=== PATIENT | male | born 2000 | race African-American/Black ===

== ENCOUNTER 2024-09-26 04:36 | Emergency (ER) | payer OTHER, SELFPAY ==
--- OUTSIDE RECORDS SUMMARY | 2000-10-18 | XMS_ITS | Encounter Summary ---
Author Organization [facility] Address [address] [place] [address] Care Team Providers Care Junior Project Coordinator Name Role Phone Unavailable Primary Care Provider Unavailabl e Encounter Details Date Type Department Care Team (Late st Contact Info) Description [address] Encounter [facility] Department of Radiology [address] [place] [phone] Social History Tobacco Use Types Packs/Day Years Used Date Smoking Tobacco: Never Smokeless Tobacco: Never Alcohol Use Standard Drinks/Week Comments No 0 (1 standard drink = 0.6 oz pur e alcohol) Intimate Partner Violence Answer Date R ecorded If you are in a relationship , do you feel safe in that relationship? Yes 09/08/2017 Safe in relationship? (18 and older) Not on file 09/08/2017 Financial Resource Strain Answer Date R ecorded Financial benefits problems Not on file 11/2022 Trouble paying for things you need Not on file 08/23/2022 Trouble paying for things you need (Other) Not o n file 08/23/2022 Safety and Environment Answer Date Alexey rded Do you have any concerns of physical abuse, sexual abuse, or neglect of your child? No 09/08/2017 Is an adult hurting you or your family? No 09/08/2017 Has someone ever touched you in a sexual way that was not ok with you? No 09/08/2017 Someone hurting you or family (18 and older) Not on file 09/08/2017 Historical abuse worry Not on file 8 If you have firearms in the home, are they all in locked storage AND unloaded? Not on file 09/08/2017 Sex and Gender Information Value Date Recorded Sex Assigned at Not on file Legal Sex Male 5:12 AM EST Gender Identity Not on file Sexual Orientation Not on file documented as of this encounter Plan of Treatment Not on file documented as of this encounter Visit Diagnoses Not on filedocumented in this encounter
--- OUTSIDE RECORDS SUMMARY | 2000-12-22 | XMS_ITS | Encounter Summary ---
Author Organization [facility] Address [address] [place] [address] Care Team Providers Care Last Puller Name Role Phone Unavailable Primary Care Provider Unavailabl e Encounter Details Date Type Department Care Team (Late st Contact Info) Description 2000 Hospital Encounter [facility] Division of Neurology [address] [place] [address] Social History Tobacco Use Types Packs/Day Years [...]
--- OUTSIDE RECORDS SUMMARY | 2001-05-25 01:00 | XMS_ITS | Encounter Summary ---
Author Organization [facility] Address [address] [place] [address] Care Team Providers Care Quality Assurance Assistant Name Role Phone Unavailable Primary Care Provider Unavailabl e Encounter Details Date Type Department Care Team (Late st Contact Info) Description 05/25/2001 Hospital Encounter [facility] Division of Neurology [address] [place] [address] Social History Tobacco Use Types [...]
--- OUTSIDE RECORDS SUMMARY | 2002-01-11 | XMS_ITS | Encounter Summary ---
Author Organization [facility] Address [address] [place] [address] Care Team Providers Care Medical Records Director Name Role Phone Unavailable Primary Care Provider Unavailabl e Encounter Details Date Type Department Care Team (Late st Contact Info) Description 01/11/2002 Hospital Encounter [facility] Division of Neurology [address] [place] [address] Social History Tobacco Use Types [...]
--- OUTSIDE RECORDS SUMMARY | 2002-06-28 01:00 | XMS_ITS | Encounter Summary ---
Author Organization [facility] Address [address] [place] [address] Care Team Providers Care Fig Bar Machine Operator Name Role Phone Unavailable Primary Care Provider Unavailabl e Encounter Details Date Type Department Care Team (Late st Contact Info) Description 06/28/2002 Hospital Encounter [facility] Department of Radiology [address] [place] [phone] Social History Tobacco Use Types Packs/Day [...]
--- OUTSIDE RECORDS SUMMARY | 2002-07-12 01:00 | XMS_ITS | Encounter Summary ---
Author Organization [facility] Address [address] [place] [address] Care Team Providers Care Parcel Post Order Clerk Name Role Phone Unavailable Primary Care Provider Unavailabl e Encounter Details Date Type Department Care Team (Late st Contact Info) Description 07/12/2002 Hospital Encounter [facility] Division of Neurology [address] [place] [address] Social History Tobacco Use Types [...]
--- OUTSIDE RECORDS SUMMARY | 2003-02-21 01:00 | XMS_ITS | Encounter Summary ---
Author Organization [facility] Address [address] [place] [address] Care Team Providers Care Supervisor Bakery Sanitation Name Role Phone Unavailable Primary Care Provider Unavailabl e Encounter Details Date Type Department Care Team (Late st Contact Info) Description 02/21/2003 Hospital Encounter [facility] Division of Neurology [address] [place] [address] Social History Tobacco Use Types Packs/Day Years [...]
--- OUTSIDE RECORDS SUMMARY | 2003-04-23 01:00 | XMS_ITS | Encounter Summary ---
Author Organization [facility] Address [address] [place] [address] Care Team Providers Care Keno Terminal Operator Name Role Phone Unavailable Primary Care Provider Unavailabl e Encounter Details Date Type Department Care Team (Late st Contact Info) Description 04/23/2003 Hospital Encounter [facility] Division of Neurology [address] [place] [address] Social History Tobacco Use Types [...]
--- OUTSIDE RECORDS SUMMARY | 2003-06-27 01:00 | XMS_ITS | Encounter Summary ---
Author Organization [facility] Address [address] [place] [address] Care Team Providers Care Rehab Office Coordinator Name Role Phone Unavailable Primary Care Provider Unavailabl e Encounter Details Date Type Department Care Team (Late st Contact Info) Description 06/27/2003 Hospital Encounter [facility] Division of Neurology [address] [place] [address] Social History Tobacco Use Types [...]
--- OUTSIDE RECORDS SUMMARY | 2003-08-01 | XMS_ITS | Encounter Summary ---
Author Organization [facility] Address [address] [place] [address] Care Team Providers Care Card Game Operator Name Role Phone Unavailable Primary Care Provider Unavailabl e Encounter Details Date Type Department Care Team (Late st Contact Info) Description 08/01/2003 Hospital Encounter [facility] Division of Neurology [address] [place] [address] Social History Tobacco Use Types [...]
--- OUTSIDE RECORDS SUMMARY | 2003-10-03 | XMS_ITS | Encounter Summary ---
Author Organization [facility] Address [address] [place] [address] Care Team Providers Care Survey Operations Director Name Role Phone Unavailable Primary Care Provider Unavailabl e Encounter Details Date Type Department Care Team (Late st Contact Info) Description 10/03/[address] [facility] Division of Neurology [address] [place] [address] Social History Tobacco Use Types [...]
--- OUTSIDE RECORDS SUMMARY | 2003-12-26 | XMS_ITS | Encounter Summary ---
Author Organization [facility] Address [address] [place] [address] Care Team Providers Care Client Resolution Specialist Name Role Phone Unavailable Primary Care Provider Unavailabl e Encounter Details Date Type Department Care Team (Late st Contact Info) Description 12/26/2003 Hospital Encounter [facility] Division of Neurology [address] [place] [address] Social History Tobacco Use Types [...]
--- OUTSIDE RECORDS SUMMARY | 2004-03-05 01:00 | XMS_ITS | Encounter Summary ---
Author Organization [facility] Address [address] [place] [address] Care Team Providers Care Medicine Assistant Name Role Phone Unavailable Primary Care Provider Unavailabl e Encounter Details Date Type Department Care Team (Late st Contact Info) Description 03/05/2004 Hospital Encounter [facility] Division of Neurology [address] [place] [address] Social History Tobacco Use Types [...]
--- OUTSIDE RECORDS SUMMARY | 2004-06-16 01:00 | XMS_ITS | Encounter Summary ---
Author Organization [facility] Address [address] [place] [address] Care Team Providers Care Commissary Worker Name Role Phone Unavailable Primary Care Provider Unavailabl e Encounter Details Date Type Department Care Team (Late st Contact Info) Description 06/16/2004 Hospital Encounter [facility] Division of Neurology [address] [place] [address] Social History Tobacco Use Types [...]
--- OUTSIDE RECORDS SUMMARY | 2005-02-16 01:00 | XMS_ITS | Encounter Summary ---
Author Organization [facility] Address [address] [place] [address] Care Team Providers Care Manager Business Continuity Name Role Phone Unavailable Primary Care Provider Unavailabl e Encounter Details Date Type Department Care Team (Late st Contact Info) Description 02/16/2005 Hospital Encounter [facility] Division of Neurology [address] [place] [address] Social History Tobacco Use Types [...]
--- OUTSIDE RECORDS SUMMARY | 2005-05-11 01:00 | XMS_ITS | Encounter Summary ---
Author Organization [facility] Address [address] [place] [address] Care Team Providers Care Dining Room Manager Name Role Phone Unavailable Primary Care Provider Unavailabl e Encounter Details Date Type Department Care Team (Late st Contact Info) Description 05/11/2005 Hospital Encounter [facility] Division of Neurology [address] [place] [address] Social History Tobacco Use Types [...]
--- OUTSIDE RECORDS SUMMARY | 2005-07-01 01:00 | XMS_ITS | Encounter Summary ---
Author Organization [facility] Address [address] [place] [address] Care Team Providers Care International Sourcing Manager Name Role Phone Unavailable Primary Care Provider Unavailabl e Encounter Details Date Type Department Care Team (Late st Contact Info) Description 07/01/2005 Hospital Encounter [facility] Division of Neurology [address] [place] [address] Social History Tobacco Use Types [...]
--- OUTSIDE RECORDS SUMMARY | 2005-10-21 | XMS_ITS | Encounter Summary ---
Author Organization [facility] Address [address] [place] [address] Care Team Providers Care Hospital Education Coordinator Name Role Phone Unavailable Primary Care Provider Unavailabl e Encounter Details Date Type Department Care Team (Late st Contact Info) Description 10/21/2005 Hospital Encounter [facility] Division of Neurology [address] [place] [address] Social History Tobacco Use Types [...]
--- OUTSIDE RECORDS SUMMARY | 2005-12-09 | XMS_ITS | Encounter Summary ---
Author Organization [facility] Address [address] [place] [address] Care Team Providers Care Citrus Fruit Colorer Name Role Phone Unavailable Primary Care Provider Unavailabl e Encounter Details Date Type Department Care Team (Late st Contact Info) Description 12/09/2005 Hospital Encounter [facility] Division of Neurology [address] [place] [address] Social History Tobacco Use Types [...]
--- OUTSIDE RECORDS SUMMARY | 2006-01-20 | XMS_ITS | Encounter Summary ---
Author Organization [facility] Address [address] [place] [address] Care Team Providers Care Supervisor Building Maintenance Name Role Phone Unavailable Primary Care Provider Unavailabl e Encounter Details Date Type Department Care Team (Late st Contact Info) Description 01/20/2006 Hospital Encounter [facility] Division of Neurology [address] [place] [address] Social History Tobacco Use Types [...]
--- OUTSIDE RECORDS SUMMARY | 2006-04-21 01:00 | XMS_ITS | Encounter Summary ---
Author Organization [facility] Address [address] [place] [address] Care Team Providers Care Special Delivery Mail Carrier Name Role Phone Unavailable Primary Care Provider Unavailabl e Encounter Details Date Type Department Care Team (Late st Contact Info) Description 04/21/2006 Hospital Encounter [facility] Division of Neurology [address] [place] [address] Social History Tobacco Use Types [...]
--- OUTSIDE RECORDS SUMMARY | 2006-07-21 | XMS_ITS | Encounter Summary ---
Author Organization [facility] Address [address] [place] [address] Care Team Providers Care Manager Financial Name Role Phone Unavailable Primary Care Provider Unavailabl e Encounter Details Date Type Department Care Team (Late st Contact Info) Description 07/21/2006 Hospital Encounter [facility] Division of Neurology [address] [place] [address] Social History Tobacco Use Types [...]
--- OUTSIDE RECORDS SUMMARY | 2006-10-24 | XMS_ITS | Encounter Summary ---
Author Organization [facility] Address [address] [place] [address] Care Team Providers Care Stone Decorator Name Role Phone Unavailable Primary Care Provider Unavailabl e Encounter Details Date Type Department Care Team (Late st Contact Info) Description 10/24/2006 Hospital Encounter [place] [id number] [place] Division of Developmental & Behavioral Pediatrics [address] [place] [phone] Social History Tobacco Use Types Packs/Day [...]
--- OUTSIDE RECORDS SUMMARY | 2006-11-24 | XMS_ITS | Encounter Summary ---
Author Organization [facility] Address [address] [place] [address] Care Team Providers Care Frame Polisher Name Role Phone Unavailable Primary Care Provider Unavailabl e Encounter Details Date Type Department Care Team (Late st Contact Info) Description 11/24/2006 Hospital Encounter [facility] Division of Neurology [address] [place] [address] Social History Tobacco Use Types [...] on file documented as of this encounter Miscellaneous Notes * Consent Other - Edt, Audit [place] - 10/31/2007 11:57 AM EDT documented in this encounter Plan of Treatment Not on file documented as of this encounter Visit Diagnoses Not on filedocumented in this encounter
--- OUTSIDE RECORDS SUMMARY | 2006-12-27 | XMS_ITS | Encounter Summary ---
Author Organization [facility] Address [address] [place] [address] Care Team Providers Care Director Of User Experience Name Role Phone Unavailable Primary Care Provider Unavailabl e Encounter Details Date Type Department Care Team (Late st Contact Info) Description 12/27/2006 Hospital Encounter [facility] Department of Radiology [address] [place] [phone] Social History Tobacco Use Types Packs/Day [...] as of this encounter Miscellaneous Notes * Orders - Edt, Audit [place] - 02/27/2011 5:11 AM EST * Consent Other - Edt, Audit [place] - 10/31/2007 3:07 PM EDT documented in this encounter Plan of Treatment Not on file documented as of this encounter Procedures Procedure Name Priority Date/Time Associated Diagnosis Comments MRI BRAIN W/O CONTRAST Routine 12/27/2006 11:57 AM EDT documented in this encounter Results * MRI BRAIN W/O CONTRAST (12/27/2006 11:57 AM EDT) Anatomical Region Laterality Modality MRI NEURO Magnetic Resonan ce 12/27/2006 11:3 0 AM EDT Narrative 12/27/2006 11:57 AM EDT Final Report MRI brain. Indication: Structural abnormality. Technical: Multiplanar multisequence MRI of the brain performed without contrast. No sedation was utilized. Findings: When compared to prior MRI brain performed June 28, 2002, the previously identified prominent extra-axial fluid collections have resolved. The tsai-white differentiation is maintained and there is no intracranial mass or hemorrhage. No tsai matter heterotopia is identified. The temporal lobes are symmetric in size and appearance and are free of abnormal signal foci. A cavum septum pellucidum and cavum septum vergae are again noted. Otherwise the ventricles maintain a midline position and demonstrate normal contours. The basilar cisterns remain patent. The vascular flow-voids at the skull base as well to the major dural sinuses are unremarkable. No foci of the diffusion restriction is identified to suggest acute ischemia. The mastoid air cells and orbits are unremarkable. Mild mucosal thickening is noted within the sphenoid sinuses, right greater than left. Impression: 1. Interval resolution of prominent extra-axial CSF spaces. 2. Mild sphenoid sinus disease. 3. Otherwise unremarkable MR brain. Interpreted By: PAULINO MANLEY M.D. Verified By: MICHAEL HALL M.D. on 12/27/2006 15:33 via Electronic Signature The attending radiologist has reviewed the images and agrees with this report. us Danyel Esteves M.D. MR ORDERABLES Final Resu lt documented in this encounter Visit Diagnoses Not on filedocumented in this encounter
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
[2024-09-26 04:29] VITALS: BP 156/96; PULSE 60; RESP 16; TEMP 36.6; O2SAT 100; BMI 21.1
[2024-09-26 04:47] VITALS: BP 156/96; PULSE 60; RESP 16; TEMP 36.6; O2SAT 100
[2024-09-26 04:48] VITALS: BP 156/96; PULSE 60; RESP 16; TEMP 36.6; O2SAT 97
--- OUTSIDE RECORDS SUMMARY | 2024-09-26 05:07 | XMS_ITS | Encounter Summary ---
Author Organization [facility] Address [address] [place] [address] Care Team Providers Care Tankerman Name Role Phone Bulmaro Brunner M.D. Primary Care Provider Encounter Details Date Type Department Care Team (Late st Contact Info) Description 07/01/2014 Clinical Note [facility] Division of Dentistry [address] [place] [phone] Provider, Historical Social History Tobacco Use Types Packs/Day Years Used Date Smoking Tobacco: Never Alcohol Use Standard Drinks/Week Comments No 0 (1 standard drink = 0.6 oz pur e alcohol) Sex and Gender Information Value Date Recorded Sex Assigned at Not on file Legal Sex Male 5:12 AM EST Gender Identity Not on file Sexual Orientation Not on file documented as of this encounter Progress Notes * Provider, Historical - 07/01/2014 12:00 AM EDT Dentist/Dry Sander/Hygienist verified correct patient. ~~:_00 ~~Pain?: Yes____ No ___x_~Pain Score for visit:___0____~Pain Scale used: (choose one: Faces__x_, Numeric Rating Scale___, FLACC___.)~~Note authored by: Ricky Bocanegra ([email or web address]) documented in this encounter Plan of Treatment Not on file documented as of this encounter Visit Diagnoses Not on filedocumented in this encounter Care Teams Tankerman Relationship Specialty Start Date End Date Bulmaro Brunner M.D. [address] [place] [phone] PCP - General External Pediatrics 04/19/12 documented as of this encounter
--- OUTSIDE RECORDS SUMMARY | 2024-09-26 05:07 | XMS_ITS | Encounter Summary ---
Author Organization [facility] Address [address] [place] [address] Care Team Providers Care Logistics Supervisor Name Role Phone Bulmaro Brunner M.D. Primary Care Provider Encounter Details Date Type Department Care Team (Late st Contact Info) Description 07/01/2014 Clinical Note [facility] Division of Dentistry [address] [place] [phone] Provider, Historical Social History Tobacco Use [...] Provider, Historical - 07/01/2014 12:00 AM EDT Recall completed. No decay noted.~Note authored by: Ricky Bocanegra ([email or web address]) documented in this encounter Plan of Treatment Not on file documented as of this encounter Visit Diagnoses Not on filedocumented in this encounter Care Teams Logistics Supervisor Relationship Specialty Start Date End Date Bulmaro Brunner M.D. [address] [place] [address] PCP - General External Pediatrics 04/19/12 documented as of this encounter
--- OUTSIDE RECORDS SUMMARY | 2024-09-26 05:07 | XMS_ITS | Encounter Summary ---
Author Organization [facility] Address [address] [place] [address] Care Team Providers Care Neon Sign Maker Name Role Phone Bulmaro Brunner M.D. Primary Care Provider Encounter Details Date Type Department Care Team (Late st Contact Info) Description 12/03/2011 Clinical Note [facility] Division of Dentistry [address] [place] [phone] Provider, Historical Social History Tobacco Use Types Packs/Day Years Used Date Smoking Tobacco: Never Assessed Alcohol Use Standard Drinks/Week Comments No 0 (1 standard drink = 0.6 oz pur e alcohol) Sex and Gender Information Value Date Recorded Sex Assigned at Not on file Legal Sex Male 5:12 AM EST Gender Identity Not on file Sexual Orientation Not on file documented as of this encounter Progress Notes * Provider, Historical - 12/03/2011 12:00 AM EDT P: Restorative.~T: Reviewed PMH.~Admin 4% Septocaine 1:352634vay 0.9mL, Cotton roll & parotid shield isolation.~#B is class 2 mobile and presents with distal occlusal decay. [facility] #B to allow direct visualization of #A. ~# 3,14,19,30 - A/E, Optibond, Clinpro sealant.~#B - simple extraction w/ airway protection in place. Cotton/pressure hemostasis obtained.~Afterextraction of #B, mesial of #A was observed. #A had white spot lesion on mesial but no cavitated lesion. Fluoride varnish applied to mesial of #A.~Discussed POI. Emphasized good [place] and return for 6 month recalls to watch incipient lesions.~E: + Did excellent even without use of nitrous~N: RTC 6 month recall~~I approve the patient-related information obtained by the technical staff assistant, hygienist, resident and/or attending pertaining to the patient's condition, findings, history and/or treatment.~Note authored by: Destiny Ruff ([email or web address]) documented in this encounter Plan of Treatment Not on file documented as of this encounter Visit Diagnoses Not on filedocumented in this encounter Care Teams Neon Sign Maker Relationship Specialty Start Date End Date Bulmaro Brunner M.D. [facility] [place] [address] PCP - General External Pediatrics 04/19/12 documented as of this encounter
--- OUTSIDE RECORDS SUMMARY | 2024-09-26 05:07 | XMS_ITS | Encounter Summary ---
Author Organization [facility] Address [address] [place] [address] Care Team Providers Care Staff Scientist Name Role Phone Bulmaro Brunner M.D. Primary Care Provider Reason for Visit * Reason Comments Medication Refill Encounter Details Date Type Department Care Team (Late st Contact Info) Description 06/08/2017 Refill [facility] Division of Neurology [address] [place] [address] Melany Ulloa M.D. Psychiatry [address] [place] [address] [address] [place], [place] [phone] Medication Refill Social History Tobacco Use Types Packs/Day Years [...] documented as of this encounter Visit Diagnoses Diagnosis Myopia, unspecified laterality Regular astigmatism, unspecified laterality Generalized lymphadenopathy Enlargement of lymph nodes Eosinophilia Major depressive disorder, single episode, severe with psychotic features Major depressive disorder, single episode, severe, specified as with psychotic behavior Suicidal ideation Seizure disorder Unspecified epilepsy without mention of intractable epilepsy Intermittent explosive disorder Language impairment Other speech disturbance Generalized epilepsy Unspecified epilepsy without mention of intractable epilepsy Other specified anxiety disorders Adjustment disorder with other symptom Bipolar I disorder, most recent episode (or current) manic Bipolar I disorder, most recent episode (or current) manic, unspecified Impaired cognition Unspecified persistent mental disorders due to conditions classified elsewhere Intellectual disability Unspecified intellectual disabilities Trichotillomania Other 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 [facility] [place] [address] PCP - General External Pediatrics 04/19/12 documented as of this encounter
--- OUTSIDE RECORDS SUMMARY | 2024-09-26 05:07 | XMS_ITS | Encounter Summary ---
Author Organization [facility] Address [address] [place] [address] Care Team Providers Care Appeals Officer Name Role Phone Bulmaro Brunner M.D. Primary Care Provider Encounter Details Date Type Department Care Team (Late st Contact Info) Description 12/03/[address] [facility] Division of Dentistry [address] [place] [phone] Provider, Historical Social History Tobacco Use [...] of this encounter Progress Notes * Provider, Sanjuana - 12/03/2011 12:00 AM EDT Reviewed history and was present for the procedure. Agree with the treatment provided as charted.~Note authored by: Mike Calderon ([email or web address]) documented in this encounter Plan of Treatment Not on file documented as of this encounter Visit Diagnoses Not on filedocumented in this encounter Care Teams Appeals Officer Relationship Specialty Start Date End Date Bulmaro Brunner M.D. [facility] [place] [address] PCP - General External Pediatrics 04/19/12 documented as of this encounter
--- OUTSIDE RECORDS SUMMARY | 2024-09-26 05:07 | XMS_ITS | Encounter Summary ---
Author Organization [facility] Address [address] [place] [address] Care Team Providers Care Glass Inspector Name Role Phone Bulmaro Brunner M.D. Primary Care Provider Encounter Details Date Type Department Care Team (Late st Contact Info) Description 12/03/2011 Clinical Note [facility] Division of Dentistry [address] [place] [phone] Provider, Historical Social History Tobacco Use [...] Provider, Historical - 12/03/2011 12:00 AM EDT Dentist/Industrial Therapist verified correct patient identification, procedures with materials and special equipment if needed, images or relevant labs, irrigation solutions (other than water), need for antibiotics, precautions based on medical or medication history.~~:___2000 ~~Name of Participants in the Time Out: Dr Elzbieta GUZMAN/ Lalitha CDA ~~Pain?: Yes____ No __x__~Pain Score for visit:___0____~Pain Scale used: (choose one: Oucher_x__, Visual Analog Scale___, FLACC___.)~~Note authored by: Bebe Doty ([email or web address]) documented in this encounter Plan of Treatment Not on file documented as of this encounter Visit Diagnoses Not on filedocumented in this encounter Care Teams Glass Inspector Relationship Specialty Start Date End Date Bulmaro Brunner M.D. [facility] [place] [place] [phone] PCP - General External Pediatrics 04/19/12 documented as of this encounter
--- OUTSIDE RECORDS SUMMARY | 2024-09-26 05:08 | XMS_ITS | Encounter Summary ---
Author Organization [facility] Address [address] [place] [address] Care Team Providers Care Pricing Consultant Name Role Phone Bulmaro Brunner M.D. Primary Care Provider Reason for Visit * Reason Comments Medication Refill Encounter Details Date Type Department Care Team (Late st Contact Info) Description 01/29/2019 Refill [facility] Division of Psychiatry [address] [place] [address] Melany Ulloa M.D. Psychiatry [address] [facility] [address] [place], [place] [phone] Medication Refill Social History Tobacco Use Types [...] (18 and older) Not on file 09/08/2017 Safety and Environment Answer Date Alexey rded [...] as of this encounter Visit Diagnoses Diagnosis Bipolar I disorder, most recent episode (or current) manic Bipolar I disorder, most recent episode (or current) manic, unspecified Attention deficit hyperactivity disorder, combined type Attention deficit disorder with hyperactivity documented in this encounter Care Teams Pricing Consultant Relationship Specialty Start Date End Date Bulmaro Brunner M.D. [address] [place] [phone] PCP - General External Pediatrics 04/19/12 documented as of this encounter
--- OUTSIDE RECORDS SUMMARY | 2024-09-26 05:08 | XMS_ITS | Encounter Summary ---
Author Organization [facility] Address [address] [place] [address] Care Team Providers Care Remediation Consultant Name Role Phone Bulmaro Brunner M.D. Primary Care Provider Encounter Details Date Type Department Care Team (Late st Contact Info) Description 03/22/2017 Clinical Note [facility] Division of Dentistry [address] [place] [phone] Provider, Historical Social History Tobacco Use [...] encounter Progress Notes * Provider, Historical - 03/22/2017 12:00 AM EST Dentist/Single Spindle Screw Machine Operator verified correct patient identification, procedures with materials and special equipment if needed, images or relevant labs, irrigation solutions (other than water), need for antibiotics, precautions based on medical or medication history. ~~:_2000 ~~Name of Participants in the Time Out:__Dr. Garcia and Kareen Sarmiento CDA and Mother of child ~~Pain?: Yes____ No __X__ ~Pain Score for visit:___0____ ~Pain Scale used: (choose one: Faces__X_, Numeric Rating Scale___, FLACC___.) ~Note authored by: Kareen Sarmiento ([email or web address]) documented in this encounter Plan of Treatment Not on file documented as of this encounter Visit Diagnoses Not on filedocumented in this encounter Care Teams Remediation Consultant Relationship Specialty Start Date End Date Bulmaro Brunner M.D. [facility] [place] [phone] PCP - General External Pediatrics 04/19/12 documented as of this encounter
--- OUTSIDE RECORDS SUMMARY | 2024-09-26 05:08 | XMS_ITS | Encounter Summary ---
Author Organization [facility] Address [address] [place] [address] Care Team Providers Care Book Publisher Name Role Phone Bulmaro Brunner M.D. Primary Care Provider Reason for Visit * Reason Comments Medication Refill Encounter Details Date Type Department Care Team ([facility] st Contact Info) Description 05/02/2014 Refill [facility] Division of Psychiatry [address] [place] [address] Melany Ulloa M.D. Psychiatry [address] [place] [address] [address] [place], [place] [phone] Medication Refill Social History Tobacco Use Types [...] on filedocumented in this encounter Care Teams Book Publisher Relationship Specialty Start Date End Date Bulmaro Brunner M.D. [address] [place] [phone] PCP - General External Pediatrics 04/19/12 documented as of this encounter
--- OUTSIDE RECORDS SUMMARY | 2024-09-26 05:08 | XMS_ITS | Encounter Summary ---
Author Organization [facility] Address [address] [place] [address] Care Team Providers Care Client Services Representative Name Role Phone Bulmaro Brunner M.D. Primary Care Provider Encounter Details Date Type Department Care Team (Late st Contact Info) Description 01/06/2017 Clinical Note [facility] Division of Dentistry [address] [place] [phone] Provider, Historical Social History Tobacco Use [...] encounter Progress Notes * Provider, Historical - 01/06/2017 12:00 AM EDT P: Periodic recall exam. ~T: Reviewed PMH. ~EOE- wnl, no asymmetry noted ~IOE- soft tissues: wnl, no signs of infection/pathology. Gingival health- poor. Reviewed [place] for brushing/flossing. ~Hard tissues: Permanent dentition with Class I molar occlusion. ~2 bwx and 2 anterior PA radiographs taken, read, dx: findings as charted. Caries and incipients as charted. White spot lesions noted across maxillary and mandibular facial surfaces. Showed moc and patient white spot lesions and discussed importance of improved [place]. Sealants planned on 12's, small distal opercumlums present #18 and #31, seal when patient returns for restorative if able. ~Prophy, Fluoride application, OHI. ~E: ++ ~N: Restorative (tx 30) x 2~Radiograph prescription for next recall - [place] ~~I approve the patient-related information obtained by the promotional advertising assistant, hygienist, resident and/or attending pertaining to the patient's condition, findings, history and/or treatment. ~Note authored by: Sara Villafana ([email or web address]) documented in this encounter Plan of Treatment Not on file documented as of this encounter Visit Diagnoses Not on filedocumented in this encounter Care Teams Client Services Representative Relationship Specialty Start Date End Date Bulmaro Brunner M.D. [address] [place] [phone] PCP - General External Pediatrics 04/19/12 documented as of this encounter
--- OUTSIDE RECORDS SUMMARY | 2024-09-26 05:08 | XMS_ITS | Encounter Summary ---
Author Organization [facility] Address [address] [place] [address] Care Team Providers Care Osha Inspector Name Role Phone Bulmaro Brunner M.D. Primary Care Provider Reason for Visit * Reason Comments Medication Refill Encounter Details Date Type Department Care Team (Late st Contact Info) Description 10/11/2018 Refill [facility] Division of Psychiatry [address] [place] [address] Melany Ulloa M.D. Psychiatry [address] [facility] [address] [place], [place] [phone] Medication Refill Social History Tobacco Use Types [...] combined type Attention deficit disorder with hyperactivity Mood disorder Unspecified episodic mood disorder documented in this encounter Care Teams Osha Inspector Relationship Specialty Start Date End Date Bulmaro Brunner M.D. [address] [place] [phone] PCP - General External Pediatrics 04/19/12 documented as of this encounter
--- OUTSIDE RECORDS SUMMARY | 2024-09-26 05:08 | XMS_ITS | Encounter Summary ---
Author Organization [facility] Address [address] [place] [address] Care Team Providers Care Seasonal Recruiter Name Role Phone Bulmaro Brunner M.D. Primary Care Provider Reason for Visit * Reason Comments Medication Refill Encounter Details Date Type Department Care Team (Late st Contact Info) Description 10/25/2016 Refill [facility] Division of Neurology [address] [place] [address] Danyel Esteves M.D. Neurology [address] [place] [address] [address] [place] [address] Medication Refill Social History Tobacco Use Types [...] disorder documented in this encounter Care Teams Seasonal Recruiter Relationship Specialty Start Date End Date Bulmaro Brunner M.D. [address] [place] [phone] PCP - General External Pediatrics 04/19/12 documented as of this encounter
--- OUTSIDE RECORDS SUMMARY | 2024-09-26 05:08 | XMS_ITS | Encounter Summary ---
Author Organization [facility] Address [address] [place] [address] Care Team Providers Care Waitress Name Role Phone Bulmaro Brunner M.D. Primary Care Provider Encounter Details Date Type Department Care Team ([facility] st Contact Info) Description 07/23/2013 Clinical Note [facility] Division of Psychiatry [address] [place] [address] Melany Ulloa M.D. Psychiatry [address] [place] [address] [address] [place], [place] [phone] Social History Tobacco Use Types Packs/Day Years [...] on filedocumented in this encounter Care Teams Waitress Relationship Specialty Start Date End Date Bulmaro Brunner M.D. [address] [place] [phone] PCP - General External Pediatrics 04/19/12 documented as of this encounter
--- OUTSIDE RECORDS SUMMARY | 2024-09-26 05:08 | XMS_ITS | Encounter Summary ---
Author Organization [facility] Address [address] [place] [address] Care Team Providers Care Brine Mixer Operator Name Role Phone Bulmaro Brunner M.D. Primary Care Provider Encounter Details Date Type Department Care Team (Late st Contact Info) Description 03/16/2017 Clinical Note [facility] Division of Dentistry [address] [place] [phone] Provider, Historical Social History Tobacco Use [...] encounter Progress Notes * Provider, Historical - 03/16/2017 12:00 AM EST P: Restorative. ~T: Reviewed PMH. ~N2O 40% 5L/min, 20min, 5 min O2. ~Admin 2% Lidocaine 1:426183ubh9.7mL via infiltration, Optragate used for isolation ~#7 (F), #11 (F)- removed decay, A/E, Prime and velasquez, Dyract composite. Shade A2. Polished and finished. ~Discussed POI.Gave copy of after treatment instructions ~E: ++, listened to music, excellent patient ~N: Restorative as phased ~~I approve the patient-related information obtained by the assistant director of nursing, hygienist, resident and/or attending pertaining to the patient's condition, findings, history and/or treatment. ~Note authored by: Sara Villafana([email or web address]) documented in this encounter Plan of Treatment Not on file documented as of this encounter Visit Diagnoses Not on filedocumented in this encounter Care Teams Brine Mixer Operator Relationship Specialty Start Date End Date Bulmaro Brunner M.D. [address] [place] [phone] PCP - General External Pediatrics 04/19/12 documented as of this encounter
--- OUTSIDE RECORDS SUMMARY | 2024-09-26 05:08 | XMS_ITS | Encounter Summary ---
Author Organization [facility] Address [address] [place] [address] Care Team Providers Care Negative Retoucher Name Role Phone Bulmaro Brunner M.D. Primary Care Provider Reason for Visit * Reason Comments Medication Refill Encounter Details Date Type Department Care Team (Late st Contact Info) Description 12/30/2018 Refill [facility] Division of Psychiatry [address] [place] [address] Melany Ulloa M.D. Psychiatry [address] [facility] [address] [place], [place] [phone] Medication Refill Social History Tobacco Use Types [...] hyperactivity documented in this encounter Care Teams Negative Retoucher Relationship Specialty Start Date End Date Bulmaro Brunner M.D. [address] [place] [phone] PCP - General External Pediatrics 04/19/12 documented as of this encounter
--- OUTSIDE RECORDS SUMMARY | 2024-09-26 05:08 | XMS_ITS | Encounter Summary ---
Author Organization [facility] Address [address] [place] [address] Care Team Providers Care Dry Folder Cloth Name Role Phone Bulmaro Brunner M.D. Primary Care Provider Encounter Details Date Type Department Care Team (Late st Contact Info) Description 07/31/2018 Clinical Note [facility] Division of Dentistry [address] [place] [phone] Provider, Historical Social History Tobacco Use [...] encounter Progress Notes * Provider, Sanjuana - 07/31/2018 12:00 AM EDT Dentist/Tunnel Heading Supervisor/Hygienist verified correct patient. ~~: /04/18 ~~Pain?: Yes____ No _x___ ~Pain Score for visit:____0___ ~Pain Scale used: (choose one: Faces___, Numeric Rating Scale_x__, FLACC___.) ~ Note authored by: Courtney Peters ([email or web address]) documented in this encounter Plan of Treatment Not on file documented as of this encounter Visit Diagnoses Not on filedocumented in this encounter Care Teams Dry Folder Cloth Relationship Specialty Start Date End Date Bulmaro Brunner M.D. [address] [place] [phone] PCP - General External Pediatrics 04/19/12 documented as of this encounter
--- OUTSIDE RECORDS SUMMARY | 2024-09-26 05:08 | XMS_ITS | Encounter Summary ---
Author Organization [facility] Address [address] [place] [address] Care Team Providers Care Mechanical Field Engineer Name Role Phone Bulmaro Brunner M.D. Primary Care Provider Encounter Details Date Type Department Care Team (Late st Contact Info) Description 07/30/2011 Clinical Note [facility] Division of Dentistry [address] [place] [phone] ProviderSanjuana Social History Tobacco Use Types Packs/Day Years [...] as of this encounter Progress Notes * ProviderSanjuana - 07/30/2011 12:00 AM EDT I was present for the critial portions of the appointment. I was present for the oral exam and history. I reviewed the findings and agree with the resident's assessment, treatment plan, and care provided. No space maintenance needed.Note authored by: Tim Hernandez ([email or web address]) documented in this encounter Plan of Treatment Not on file documented as of this encounter Visit Diagnoses Not on filedocumented in this encounter Care Teams Mechanical Field Engineer Relationship Specialty Start Date End Date Bulmaro Brunner M.D. [address] [place] [phone] PCP - General External Pediatrics 04/19/12 documented as of this encounter
--- OUTSIDE RECORDS SUMMARY | 2024-09-26 05:08 | XMS_ITS | Encounter Summary ---
Author Organization [facility] Address [address] [place] [address] Care Team Providers Care Football Coach Name Role Phone Bulmaro Brunner M.D. Primary Care Provider Encounter Details Date Type Department Care Team (Late st Contact Info) Description 10/01/2011 Clinical Note [facility] Division of Dentistry [address] [place] [phone] Provider, Historical Social History Tobacco Use [...] encounter Progress Notes * Provider, Historical - 10/01/2011 12:00 AM EDT Dentist/Chiropractic Teacher/Hygienist verified correct patient. ~~:_00 ~~Pain?: Yes____ No __x__~Pain Score for visit:__0 ~Pain Scale used: (choose one: Oucher_x__, Visual Analog Scale___, FLACC___.)~~Note authored by: Mabel Cooney ([email or web address]) documented in this encounter Plan of Treatment Not on file documented as of this encounter Visit Diagnoses Not on filedocumented in this encounter Care Teams Football Coach Relationship Specialty Start Date End Date Bulmaro Brunner M.D. [address] [place] [phone] PCP - General External Pediatrics 04/19/12 documented as of this encounter
--- OUTSIDE RECORDS SUMMARY | 2024-09-26 05:08 | XMS_ITS | Encounter Summary ---
Author Organization [facility] [place] [facility] Address [address] [place] [address] Care Team Providers Care Electronic Data Interchange Specialist Name Role Phone Bulmaro Brunner M.D. Primary Care Provider Reason for Visit * Reason Comments Medication Refill Encounter Details Date Type Department Care Team (Late st Contact Info) Description 11/26/2018 Refill [facility] Division of Psychiatry [address] [place] [address] Melany Ulloa M.D. Psychiatry [address] [facility] [address] [place], [place] [phone] Medication Refill Social History Tobacco Use Types [...] on filedocumented in this encounter Care Teams Electronic Data Interchange Specialist Relationship Specialty Start Date End Date Bulmaro Brunner M.D. [address] [place] [phone] PCP - General External Pediatrics 04/19/12 documented as of this encounter
--- OUTSIDE RECORDS SUMMARY | 2024-09-26 05:08 | XMS_ITS | Encounter Summary ---
Author Organization [facility] Address [address] [place] [address] Care Team Providers Care Umbrella Finisher Name Role Phone Bulmaro Brunner M.D. Primary Care Provider Reason for Visit * Reason Comments Medication Refill Encounter Details Date Type Department Care Team (Late st Contact Info) Description 04/24/2017 Refill [facility] Division of Neurology [address] [place] [address] Danyel Esteves M.D. Neurology [address] [place] [address] [address] [place] [address] Medication Refill Social History Tobacco [...] disorder documented in this encounter Care Teams Umbrella Finisher Relationship Specialty Start Date End Date Bulmaro Brunner M.D. [address] [place] [phone] PCP - General External Pediatrics 04/19/12 documented as of this encounter
--- OUTSIDE RECORDS SUMMARY | 2024-09-26 05:08 | XMS_ITS | Encounter Summary ---
Author Organization [facility] Address [address] [place] [address] Care Team Providers Care Rubber Cutting Machine Tender Name Role Phone Bulmaro Brunner M.D. Primary Care Provider Reason for Visit * Reason Comments Medication Refill Encounter Details Date Type Department Care Team ([facility] st Contact Info) Description 12/01/2015 Refill [facility] Division of Psychiatry [address] [place] [address] Melany Ulloa M.D. Psychiatry [address] [place] [address] [address] [place], [place] [phone] Medication Refill Social History Tobacco Use Types [...] on filedocumented in this encounter Care Teams Rubber Cutting Machine Tender Relationship Specialty Start Date End Date Bulmaro Brunner M.D. [address] [place] [phone] PCP - General External Pediatrics 04/19/12 documented as of this encounter
--- OUTSIDE RECORDS SUMMARY | 2024-09-26 05:08 | XMS_ITS | Encounter Summary ---
Author Organization [facility] Address [address] [place] [address] Care Team Providers Care Extract Operator Name Role Phone Bulmaro Brunner M.D. Primary Care Provider Encounter Details Date Type Department Care Team (Late st Contact Info) Description 03/22/2017 Clinical Note [facility] [place] Division of Dentistry [address] [place] [phone] Provider, Historical Social History Tobacco Use [...] Provider, Historical - 03/22/2017 12:00 AM EST P: Restorative. ~T: Reviewed PMH. ~N2O _45__% 5L/min, _30___min, 5 min O2. ~Admin 2% Lidocaine 1:[id number] 1.8mL, RD iso/MP ~~2-etch, velasquez, clinpro sealant~3-MO decay removed-etch, velasquez, resin Dyractextra, clinpro sealant, occlusion adjusted~14-etch, velasquez, clinpro sealant~15-etch, velasquez, clinpro sea lant~18-etch, velasquez, clinpro sealant~19-etch, velasquez clinpro sealant~30-etch, velasquez, clinpro sealant~31-etch, velasquez, clinpro sealant~~Discussed POI.~E: cooperative, listened to headphones, mother present~N: recall~~I approve the patient-related information obtained by the student assistant, hygienist, resident and/or attending pertaining to the patient's condition, findings, history and/or treatment. ~Note authored by: Kristine Garcia ([email or web address]) documented in this encounter Plan of Treatment Not on file documented as of this encounter Visit Diagnoses Not on filedocumented in this encounter Care Teams Extract Operator Relationship Specialty Start Date End Date Bulmaro Brunner M.D. [facility] [place] [phone] PCP - General External Pediatrics 04/19/12 documented as of this encounter
--- OUTSIDE RECORDS SUMMARY | 2024-09-26 05:08 | XMS_ITS | Encounter Summary ---
Author Organization [facility] Address [address] [place] [address] Care Team Providers Care Cds Sales Advisor Name Role Phone Bulmaro Brunner M.D. Primary Care Provider Encounter Details Date Type Department Care Team (Late st Contact Info) Description 01/06/2017 Clinical Note [facility] Division of Dentistry [address] [place] [phone] Provider, Historical Social History Tobacco Use [...] Provider, Historical - 01/06/2017 12:00 AM EDT Dentist/Fur Vault Attendant/Hygienist verified correct patient. ~~:__00____ ~~Pain?: Yes____ No __x__ ~Pain Score for visit:____0___ ~Pain Scale used: (choose one: Faces___, Numeric Rating Scale__x_, FLACC___.) ~Note authored by: Corutney Peters ([email or web address]) documented in this encounter Plan of Treatment Not on file documented as of this encounter Visit Diagnoses Not on filedocumented in this encounter Care Teams Cds Sales Advisor Relationship Specialty Start Date End Date Bulmaro Brunner M.D. [address] [place] [phone] PCP - General External Pediatrics 04/19/12 documented as of this encounter
--- OUTSIDE RECORDS SUMMARY | 2024-09-26 05:08 | XMS_ITS | Encounter Summary ---
Author Organization [facility] Address [address] [place] [address] Care Team Providers Care Tube Blower Name Role Phone Bulmaro Brunner M.D. Primary Care Provider Reason for Visit * Reason Comments Medication Refill Encounter Details Date Type Department Care Team (Late st Contact Info) Description 02/26/2019 Refill [facility] Division of Psychiatry [address] [place] [address] Melany Ulloa M.D. Psychiatry [address] [facility] [address] [place], [place] [phone] Medication Refill Social History Tobacco Use Types [...] hyperactivity documented in this encounter Care Teams Tube Blower Relationship Specialty Start Date End Date Bulmaro Brunner M.D. [address] [place] [phone] PCP - General External Pediatrics 04/19/12 documented as of this encounter
--- OUTSIDE RECORDS SUMMARY | 2024-09-26 05:08 | XMS_ITS | Encounter Summary ---
Author Organization [facility] Address [address] [place] [address] Care Team Providers Care Klystrom Tube Tester Name Role Phone Bulmaro Brunner M.D. Primary Care Provider Reason for Visit * Reason Comments Medication Refill Encounter Details Date Type Department Care Team (Late st Contact Info) Description 02/11/2019 Refill [facility] Division of Psychiatry [address] [place] [address] Melany Ulloa M.D. Psychiatry [address] [facility] [address] [place], [place] [phone] Medication Refill Social History Tobacco Use Types [...] hyperactivity documented in this encounter Care Teams Klystrom Tube Tester Relationship Specialty Start Date End Date Bulmaro Brunner M.D. [address] [place] [phone] PCP - General External Pediatrics 04/19/12 documented as of this encounter
--- OUTSIDE RECORDS SUMMARY | 2024-09-26 05:08 | XMS_ITS | Encounter Summary ---
Author Organization [facility] Address [address] [place] [address] Care Team Providers Care Health Commissioner Name Role Phone Bulmaro Brunner M.D. Primary Care Provider Encounter Details Date Type Department Care Team (Late st Contact Info) Description 07/30/2011 Clinical Note [facility] Division of Dentistry [address] [place] [phone] Provider, Historical Social History Tobacco Use [...] encounter Progress Notes * Provider, Historical - 07/30/2011 12:00 AM EDT Dentist/Carpet Loom Fixer/Hygienist verified correct patient. ~~:___2000 ~~Pain?: Yes___x_ No ____~Pain Score for visit: 2__~Pain Scale used: (choose one: Oucher__x_, Visual Analog Scale___, FLACC___.)~~Note authored by: Maritza Pickering ([email or web address]) documented in this encounter Plan of Treatment Not on file documented as of this encounter Visit Diagnoses Not on filedocumented in this encounter Care Teams Health Commissioner Relationship Specialty Start Date End Date Bulmaro Brunner M.D. [address] [place] [phone] PCP - General External Pediatrics 04/19/12 documented as of this encounter
--- OUTSIDE RECORDS SUMMARY | 2024-09-26 05:08 | XMS_ITS | Encounter Summary ---
Author Organization [facility] Address [address] [place] [address] Care Team Providers Care Pantry Goods Maker Name Role Phone Bulmaro Brunner M.D. Primary Care Provider Reason for Visit * Reason Comments Medication Refill Encounter Details Date Type Department Care Team (Late st Contact Info) Description 12/02/2018 Refill [facility] Division of Psychiatry [address] [place] [address] Melany Ulloa M.D. Psychiatry [address] [facility] [address] [place], [place] [phone] Medication Refill Social History Tobacco Use Types [...] on filedocumented in this encounter Care Teams Pantry Goods Maker Relationship Specialty Start Date End Date Bulmaro Brunner M.D. [address] [place] [phone] PCP - General External Pediatrics 04/19/12 documented as of this encounter
--- OUTSIDE RECORDS SUMMARY | 2024-09-26 05:08 | XMS_ITS | Encounter Summary ---
Author Organization [facility] Address [address] [place] [address] Care Team Providers Care Roofing Layer Name Role Phone Bulmaro Brunner M.D. Primary Care Provider Encounter Details Date Type Department Care Team (Late st Contact Info) Description 06/11/[address] Orders [address] [facility] Division of Psychiatry [address] [place] [address] Celio Chaudhari LISW Bipolar disorder, manic (Primary Dx) Social History Tobacco Use Types Packs/Day Years [...] of this encounter Visit Diagnoses Diagnosis Bipolar disorder, manic- Primary Bipolar I disorder, most recent episode (or current) manic, unspecified documented in this encounter Care Teams Roofing Layer Relationship Specialty Start Date End Date Bulmaro Brunner M.D. [address] [place] [phone] PCP - General External Pediatrics 04/19/12 documented as of this encounter
--- OUTSIDE RECORDS SUMMARY | 2024-09-26 05:08 | XMS_ITS | Encounter Summary ---
Author Organization [facility] Address [address] [place] [address] Care Team Providers Care Associate Designer Name Role Phone Bulmaro Brunner M.D. Primary Care Provider Encounter Details Date Type Department Care Team (Late st Contact Info) Description 07/01/2014 Clinical Note [facility] Division of Dentistry [address] [place] [phone] Provider, Historical Social History Tobacco Use [...] Provider, Historical - 07/01/2014 12:00 AM EDT P: Periodic recall exam.~T: Reviewed PMH.~EOE, IOE, 2 bwx radiographs taken, read, dx: findings as charted.~No decay noted~Soft tissues wnl~Prophy, Fluoride application, OHI.~E: ++~N: RTC 6 mo recall.~Radiograph prescription for next recall - none~~I approve the patient-related information obtainedby the assistant health educator, hygienist, resident and/or attending pertaining to the patient's condition, findings, history and/or treatment.~Note authored by: Chandu Luong ([email or web address]) documented in this encounter Plan of Treatment Not on file documented as of this encounter Visit Diagnoses Not on filedocumented in this encounter Care Teams Associate Designer Relationship Specialty Start Date End Date Bulmaro Brunner M.D. [address] [place] [phone] PCP - General External Pediatrics 04/19/12 documented as of this encounter
--- OUTSIDE RECORDS SUMMARY | 2024-09-26 05:08 | XMS_ITS | Encounter Summary ---
Author Organization [facility] Address [address] [place] [address] Care Team Providers Care Welfare Officer Name Role Phone Bulmaro Brunner M.D. Primary Care Provider Encounter Details Date Type Department Care Team (Late st Contact Info) Description 07/30/2011 Clinical Note [facility] Division of Dentistry [address] [place] [phone] Provider, Historical Social History Tobacco Use [...] Provider, Historical - 07/30/2011 12:00 AM EDT P: Emergency~T: RPMH, bi-polar (poorly controlled per MOC, frequent medication changes), positive for seizure d/o (last grand mal seizure 3 yr ago, last absent seizure 2 mo ago). Pt sees neurology and psych monthly. ~Pt reports intense pain in lower right, points to #S. Pt says he does not wiggle his baby teeth. ~2BWs radiograph exposed, read, diagnosed. Findings as charted.~EOE: WNL, IOE: finding s as charted. #B, C, H, L, M, R all class II mobility. #S- class III mobility. ~#S (ext): applied topical anesthetic to gingiva, simple extraction with airway protection in place. Cotton/pressure hemostasis obtained. ~Discussed findings with MOC- encouraged pt to wiggle out primary teeth w/o treatment. Requested pt RTC if pain, infection or swelling develop. ~E: +/-, anxious~N: RTC for NPE (scheduled in September) --> determine treatment plan based on remaining teeth~~I approve the patient-related information obtained by the cashier assistant, hygienist, resident and/or attending pertaining to the patient's condition, findings, history and/or treatment.~Note authored by: Jamaica Gregorio ([email or web address]) documented in this encounter Plan of Treatment Not on file documented as of this encounter Visit Diagnoses Not on filedocumented in this encounter Care Teams Welfare Officer Relationship Specialty Start Date End Date Bulmaro Brunner M.D. [address] [place] [phone] PCP - General External Pediatrics 04/19/12 documented as of this encounter
--- OUTSIDE RECORDS SUMMARY | 2024-09-26 05:08 | XMS_ITS | Encounter Summary ---
Author Organization [facility] Address [address] [place] [address] Care Team Providers Care Banquet Pilot Name Role Phone Bulmaro Brunner M.D. Primary Care Provider Encounter Details Date Type Department Care Team (Late st Contact Info) Description 07/23/2013 Orders Only [facility] Division of Psychiatry [address] [place] [address] Melany Ulloa M.D. Psychiatry [address] [place] [address] [address] [place] [address] Encounter for long-term (current) use of other medications (Primary Dx); Hypertriglyceridemia Social History Tobacco Use Types Packs/Day Years [...] as of this encounter Visit Diagnoses Diagnosis Encounter for long-term (current) use of other medications- Primary Hypertriglyceridemia Pure hyperglyceridemia documented in this encounter Care Teams Banquet Pilot Relationship Specialty Start Date End Date Bulmaro Brunner M.D. [facility]9 [place] [address] PCP - General External Pediatrics 04/19/12 documented as of this encounter
--- OUTSIDE RECORDS SUMMARY | 2024-09-26 05:08 | XMS_ITS | Clinical Summary ---
Author Organization [facility] Address [facility] hospital[address] [place] [address] Care Team Providers Care Transit Coach Operator Name Role Phone Jen Clarke NP Primary Care Provider Levi Phillips MD Unavailable [phone] Maribeth Hansen RN Unavailable [phone] Allergies No known active allergies Medications dextroamphetami ne-amphetamine (ADDERALL XR) 30 mg Capsule, Sust. Release 24 hr Take 30 mg by mouth. 12/25/2020 Active bupropion XL (WELLBUTRIN XL) 150 mg tablet Take 150 mg by mouth. 12/25/2020 Active lithium (LITHOBID) 300 mg CR tablet Take 300 mg by mouth. 12/25/2020 Active OLANZapine (ZYPREXA) 2.5 mg Tablet TAKE ONE TABLET BY MOUTH EVERY EVENING 12/25/2020 Active risperiDONE (RISPERDAL) 0.5 mg Tablet Take 0.5 mg by mouth. 12/25/2020 Active Active Problems Problem Noted Date Diagnosed Date Pectus excavatum 12/31/2020 Social History Tobacco Use Types Packs/Day Years Used Date Smoking Tobacco: Never Smokeless Tobacco: Never Alcohol Use Standard Drinks/Week Comments Never 0 (1 standard drink = 0.6 oz pur e alcohol) Sex and Gender Information Value Date Recorded Sex Assigned at Not on file Legal Sex Male 4:34 PM EDT Gender Identity Not on file Sexual Orientation Not on file Last Filed Vital Signs Vital Sign Reading Time Taken Comments Blood Pressure 104/82 12/31/2020 8:04 AM EDT Pulse 71 12/31/2020 8:04 AM EDT Temperature - - Respiratory Rate - - Oxygen Saturation - - Inhaled Oxygen Concentration - - Weight 59.9 kg (132 lb) 12/31/2020 8:01 AM EDT Height 175.3 cm (5' 9 ) 12/31/2020 8:01 AM EDT Body Mass Index 19.49 12/31/2020 8:01 AM EDT Plan of Treatment Health Maintenance Due Date Last Done Comments HPV Vaccine (2 - Male 3-dose series) 12/02/2015 11/04/2015 Lipid Screening 2020 Tetanus Vaccination (Every 1 0 Years) 12/11/2023 12/10/2013 COVID-19 Vaccine ( - 2023-2 5 season) 2023 Depression Screening 04/18/2024 Influenza Vaccination (Seaso n Ended) 2024 01/20/2017, 03/27/2015, 01/31/2014, Additional history exists Meningococcal Conjugate Vaccine Discontinued 8, 12/10/2013 Insurance [employer] Care Teams Transit Coach Operator Relationship Specialty Start Date End Date Jen Clarke NP [address] [facility] [address] [place], [place] [phone] PCP - General Nurse Practitioner 11/19/20 Levi Phillips MD [address] [place] [address] Cardiology 12/30/20 Maribeth Hansen RN [address] [place] [address] Registered Nurse 01/13/21
--- OUTSIDE RECORDS SUMMARY | 2024-09-26 05:08 | XMS_ITS | Encounter Summary ---
Author Organization [facility] Address [address] [place] [address] Care Team Providers Care Chrome Plater Helper Name Role Phone Bulmaro Brunner M.D. Primary Care Provider Reason for Visit * Reason Comments Medication Refill Encounter Details Date Type Department Care Team (Late st Contact Info) Description 09/30/2018 Refill [facility] Division of Psychiatry [address] [place] [address] Melany Ulloa M.D. Psychiatry [address] [facility] [address] [place], [place] [phone] Medication Refill Social History Tobacco Use Types [...] hyperactivity documented in this encounter Care Teams Chrome Plater Helper Relationship Specialty Start Date End Date Bulmaro Brunner M.D. [address] [place] [phone] PCP - General External Pediatrics 04/19/12 documented as of this encounter
--- OUTSIDE RECORDS SUMMARY | 2024-09-26 05:08 | XMS_ITS | Encounter Summary ---
Author Organization [facility] Address [address] [place] [address] Care Team Providers Care Aircraft Motor Mechanic Name Role Phone Bulmaro Brunner M.D. Primary Care Provider Encounter Details Date Type Department Care Team (Late st Contact Info) Description 07/31/2018 Clinical Note [facility] Division of Dentistry [address] [place] [phone] Provider, Historical Social History Tobacco Use [...] this encounter Progress Notes * ProviderSanjuana - 07/31/2018 12:00 AM EDT P: FRANSISCA~T: RPMH. ~EOE: No asymmetry, no swelling, no lymphadenopathy~IOE: No swelling, OCS: WNL, OHI: fair, no hard tissue or soft tissue pathology ~No primary caries~Pt's oral hygiene has improved since last apt~Pt has an apt with [facility] for extraction of 3rd molars ~Prophy, exam, fluoride varnishapplication, OHI~-Discussed brushing 2x day and flossing once a day~-Discussed elimination of sugary juice/drinks and limiting drinks to water ~E: ++~N: Referred to GP for continuation of dental care~Radiographs for next recall ? None ~I approve the patient-related information obtained by the assistant child care teacher, hygienist, resident and/or attending pertaining to the patient's condition, findings, history and/or treatment.~ Note authored by: Tete Saleh ([email or web address]) documented in this encounter Plan of Treatment Not on file documented as of this encounter Visit Diagnoses Not on filedocumented in this encounter Care Teams Aircraft Motor Mechanic Relationship Specialty Start Date End Date Bulmaro Brunner M.D. [facility]9 [place] [phone] PCP - General External Pediatrics 04/19/12 documented as of this encounter
--- OUTSIDE RECORDS SUMMARY | 2024-09-26 05:08 | XMS_ITS | Encounter Summary ---
Author Organization [facility] Address [address] [place] [address] Care Team Providers Care Application Development Liaison Name Role Phone Bulmaro Brunner M.D. Primary Care Provider Encounter Details Date Type Department Care Team (Late st Contact Info) Description 06/27/2008 Orders Only [facility] Division of Neurology [address] [place] [address] Liset Mcgregor, PHONE SPECIALIST-OPERATOR [employer] [address] [place] [address] Abdominal Pain; Complex Partial Epilepsy; Partial Epilepsy Social History Tobacco Use Types Packs/Day Years Used Date Smoking Tobacco: Never Assessed Sex and Gender Information Value Date Recorded Sex Assigned at Not on file Legal Sex Male 5:12 AM EST Gender Identity Not on file Sexual Orientation Not on file documented as of this encounter Plan of Treatment Not on file documented as of this encounter Procedures Procedure Name Priority Date/Time Associated Diagnosis Comments SED RATE-SATELLITE TEST ONLY Routine 06/27/2008 10:54 AM EDT DIFFERENTIAL Routine 06/27/2008 10:49 AM EDT Abdominal Pain Complex Partial Epilepsy Partial Epilepsy CBC (WITH PLATELETS) Routine 06/27/2008 10:49 AM EDT Abdominal Pain Complex Partial Epilepsy Partial Epilepsy RENAL (KIDNEY) PROFILE Routine 06/27/2008 10:49 AM EDT Abdominal Pain Complex Partial Epilepsy Partial Epilepsy HEPATIC PROFILE (NO GGT) Routine 06/27/2008 10:49 AM EDT Abdominal Pain Complex Partial Epilepsy Partial Epilepsy LAMOTRIGINE LEVEL Routine 06/27/2008 10: 49 AM EDT Abdominal Pain Complex Partial Epilepsy Partial Epilepsy documented in this encounter Results * (ABNORMAL) SED RATE-SATELLITE TEST ONLY (06/27/2008 10:54 AM EDT) SED RATE-SAT 13(H) 0 - 10 mm/hr [facility] Blood specimen (specimen) 06/27/2008 10:54 AM EDT 06/27/2008 10:54 AM EDT Liset Mcgregor PHONE SPECIALIST-OPERATOR [employer] HEMATOLOGY ORDERAB LES Final Result [facility] * LAMOTRIGINE LEVEL (06/27/2008 10:49 AM EDT) LAMOTRIGINE LEVEL 7.5 3.0 - 9.0 mcg/mL [facility] LAMOTRIGINE DS AMT 75 [facility] LAMOTRIGINE DS DT Not Provided [facility] [place] 0740 [facility] Blood specimen (specimen) 06/27/2008 10:49 AM EDT 06/27/2008 3:00 PM EDT Narrative [facility] - 06/29/2008 2:56 PM EDT IS THIS A DRUG SCREEN?->Yes Liset Mcgregor PHONE SPECIALIST-OPERATOR [employer] CHEMISTRY ORDERABL ES Final Result [facility] * RENAL (KIDNEY) PROFILE (06/27/2008 10:49 AM EDT) SODIUM LEVEL 142 134 - 143 mmol/L [facility] POTASSIUM LEVEL 3.9 3.3 - 4.6 mmol/L [facility] CHLORIDE LEVEL 103 96 - 109 mmol/L [facility] CO2 LEVEL 26 22 - 30 mmol/L [facility] ANION GAP 13 4 - 15 mmol/L [facility] BUN 7 7 - 17 mg/dL [facility] CREATININE LEVEL 0.5 0.2 - 0.7 mg/dL [facility] B/C RATIO 13 <=25 [facility] Blood specimen (specimen) 06/27/2008 10:49 AM EDT 06/27/2008 11:06 AM EDT Liset Mcgregor [facility] CHEMISTRY ORDERABL ES Final Result Performing Organization Address [facility] de Phone Number [facility] * LIVER PROFILE (06/27/2008 10:49 AM EDT) [facility] ALBUMIN LEVEL 4.4 3.4 - 5.2 gm/dL [facility] TOTAL PROTEIN LEVEL 7.7 5.9 - 8.1 gm/dL [facility] AST 39 15 - 60 unit/L [facility] ALT 13 10 - 35 unit/L [facility] ALK PHOS 275 150 - 420 unit/L [facility] BILI CONJUGATED 0.0 0.0 - 0.1 mg/dL [facility] BILI UNCONJUGATED 0.3 0.0 - 1.1 mg/dL [facility] A/G RATIO 1 1 - 2 [facility] GLOBULIN 3.3 gm/dL [facility] GGT 19 6 - 30 unit/L [facility] Blood specimen (specimen) 06/27/2008 10:49 AM EDT 06/27/2008 11:06 AM EDT Liset Mcgregor [facility] CHEMISTRY ORDERABL ES Final Result Performing Organization Address [facility] de Phone Number [facility] * (ABNORMAL) DIFFERENTIAL (06/27/2008 10:49 AM EDT) Pathologist [facility] SEGS 45 40 - 59 % [facility] LYMPHS 37(L) 38 - 46 % [facility] MONOCYTE 7 0 - 8 % [facility] EOSINOPHIL 10(H) 0 - 4 % [facility] BASOPHILS 1 0 - 1 % [facility] NEUTROPHIL ABSOLUTE 4.92 1.50 - 8.00 K/mcL [facility] LYMPH ABSOLUTE 4.07 1.50 - 6.80 K/mcL [facility] MONO ABSOLUTE 0.75 0.00 - 0.80 K/mcL [facility] EOSINOPHIL ABS 1.05(H) 0.00 - 0.50 K/mcL [facility] BASO ABSOLUTE 0.16(H) 0.00 - 0.10 K/mcL [facility] Blood specimen (specimen) 06/27/2008 10:49 AM EDT 06/27/2008 11:06 AM EDT Liset Mcgregor [facility] HEMATOLOGY ORDERAB LES Final Result [facility] * (ABNORMAL) CBC (WITH PLATELETS) (06/27/2008 10:49 AM EDT) WBC 10.9 4.5 - 13.5 K/mcL [facility] RBC 4.45 4.00 - 5.20 M/mcL [facility] HGB 12.1 11.5 - 15.5 gm/dL [facility] HCT 34.8(L) 35.0 - 45.0 % [facility] MCV LEVEL 78.3 77.0 - 95.0 fL [facility] MCH LEVEL 27.2 25.0 - 33.0 pg [facility] MCHC LEVEL 34.7 31.0 - 37.0 gm/dL [facility] RDW 12.5 <=14.6 % [facility] PLATELET 485(H) 135 - 466 K/mcL [facility] Blood specimen (specimen) 06/27/2008 10:49 AM EDT 06/27/2008 11:06 AM EDT [facility] LES Final Result [facility] documented in this encounter Visit Diagnoses Diagnosis Abdominal pain Abdominal pain, unspecified site Complex partial epilepsy Localization-related (focal) (partial) epilepsy and epileptic syndromes with complex partial seizures, without mention of intractable epilepsy Partial epilepsy Localization-related (focal) (partial) epilepsy and epileptic syndromes with simple partial seizures, without mention of intractable epilepsy documented in this encounter Care Teams Application Development Liaison Relationship Specialty Start Date End Date Bulmaro Brunner M.D. [address] [place] [phone] PCP - General External Pediatrics 04/19/12 documented as of this encounter
--- OUTSIDE RECORDS SUMMARY | 2024-09-26 05:08 | XMS_ITS | Encounter Summary ---
Author Organization [facility] Address [address] [place] [address] Care Team Providers Care Slate Splitting Supervisor Name Role Phone Bulmaro Brunner M.D. Primary Care Provider Encounter Details Date Type Department Care Team (Late st Contact Info) Description 10/01/[address] [facility] Division of Dentistry [address] [place] [phone] Provider, Sanjuana Social History Tobacco Use Types Packs/Day Years [...] this encounter Progress Notes * ProviderSanjuana - 10/01/2011 12:00 AM EDT I was present for the exam and history. Reviewed the findings and agree with the treatment plan.~Note authored by: Mike Calderon ([email or web address]) documented in this encounter Plan of Treatment Not on file documented as of this encounter Visit Diagnoses Not on filedocumented in this encounter Care Teams Slate Splitting Supervisor Relationship Specialty Start Date End Date Bulmaro Brunner M.D. [address] [place] [phone] PCP - General External Pediatrics 04/19/12 documented as of this encounter
--- OUTSIDE RECORDS SUMMARY | 2024-09-26 05:08 | XMS_ITS | Encounter Summary ---
Author Organization [facility] Address [address] [place] [address] Care Team Providers Care Marine Engine Mechanic Name Role Phone Bulmaro Brunner M.D. Primary Care Provider Encounter Details Date Type Department Care Team (Late st Contact Info) Description 10/01/2011 Clinical Note [facility] Division of Dentistry [address] [place] [phone] Provider, Historical Social History Tobacco Use [...] Provider, Historical - 10/01/2011 12:00 AM EDT P: Periodic recall exam.~T: Reviewed PMH.~EOE, IOE: findings as charted.~Prophy, Fluoride application, OHI.~E: ++~N: RTC seal 6s. A(mo). If B has exfoliated, examine directly for decay.~~I approve the patient-related information obtained by the veterinarian assistant, hygienist, resident and/or attending pertaining to the patient's condition, findings, history and/or treatment.~Note authored by: Sabrina Jamison ([email or web address]) documented in this encounter Plan of Treatment Not on file documented as of this encounter Visit Diagnoses Not on filedocumented in this encounter Care Teams Marine Engine Mechanic Relationship Specialty Start Date End Date Bulmaro Brunner M.D. [address] [place] [phone] PCP - General External Pediatrics 04/19/12 documented as of this encounter
--- OUTSIDE RECORDS SUMMARY | 2024-09-26 05:08 | XMS_ITS | Encounter Summary ---
Author Organization [facility] Address [address] [place] [address] Care Team Providers Care Lead Press Operator Name Role Phone Bulmaro Brunner M.D. Primary Care Provider Encounter Details Date Type Department Care Team (Late st Contact Info) Description 01/06/2017 Clinical Note [facility] Division of Dentistry [address] [place] [phone] ProviderSanjuana Social History Tobacco Use Types [...] this encounter Progress Notes * ProviderSanjuana - 01/06/2017 12:00 AM EDT I was present in the clinic/operating room for the visit. I reviewed clinical and radiographic findings. I agree with the resident note and was immediately available for resident supervision. ~Note authored by: Tabatha De La Garza ([email or web address]) documented in this encounter Plan of Treatment Not on file documented as of this encounter Visit Diagnoses Not on filedocumented in this encounter Care Teams Lead Press Operator Relationship Specialty Start Date End Date Bulmaro Brunner M.D. [address] [place] [phone] PCP - General External Pediatrics 04/19/12 documented as of this encounter
--- OUTSIDE RECORDS SUMMARY | 2024-09-26 05:08 | XMS_ITS | Encounter Summary ---
Author Organization [facility] Address [address] [place] [address] Care Team Providers Care Supervisor Of Operations Name Role Phone Bulmaro Brunner M.D. Primary Care Provider Encounter Details Date Type Department Care Team (Late st Contact Info) Description 03/16/2017 Clinical Note [place] [facility] Division of Dentistry [address] [place] [phone] Provider, Sanjuana Social History Tobacco Use [...] Provider, Historical - 03/16/2017 12:00 AM EST I was present in the clinic for the visit. I reviewed clinical and radiographic findings. I agree with the resident note and was immediately available for resident supervision. ~Note authored by: Britton Flower () documented in this encounter Plan of Treatment Not on file documented as of this encounter Visit Diagnoses Not on filedocumented in this encounter Care Teams Supervisor Of Operations Relationship Specialty Start Date End Date Bulmaro Brunner M.D. [address] [place] [phone] PCP - General External Pediatrics 04/19/12 documented as of this encounter
--- OUTSIDE RECORDS SUMMARY | 2024-09-26 05:08 | XMS_ITS | Encounter Summary ---
Author Organization [facility] Address [address] [place] [address] Care Team Providers Care Acetaldehyde Converter Operator Name Role Phone Bulmaro Brunner M.D. Primary Care Provider Encounter Details Date Type Department Care Team (Late st Contact Info) Description 03/16/2017 Clinical Note [facility] Division of Dentistry [address] [place] [phone] Provider, Historical Social History Tobacco Use [...] Provider, Historical - 03/16/2017 12:00 AM EST Dentist/Dowel Setting Machine Operator verified correct patient identification, procedures with materials and special equipment if needed, images or relevant labs, irrigation solutions (other than water), need for antibiotics, precautions based on medical or medication history. ~~:__[id number] ~~Name of Participants in the Time Out:__Dr. Villafana / Natalia estrella / SARA ~~Pain?: Yes____ No __x__ ~Pain Score for visit:___0____ ~Pain Scale used: (choose one: Faces___, Numeric Rating Scale__x_, FLACC___.) ~Note authored by: Evelin Ace ([email or web address]) documented in this encounter Plan of Treatment Not on file documented as of this encounter Visit Diagnoses Not on filedocumented in this encounter Care Teams Acetaldehyde Converter Operator Relationship Specialty Start Date End Date Bulmaro Brunner M.D. [facility] [place] [phone] PCP - General External Pediatrics 04/19/12 documented as of this encounter
--- OUTSIDE RECORDS SUMMARY | 2024-09-26 05:08 | XMS_ITS | Encounter Summary ---
Author Organization [facility] Address [address] [place] [address] Care Team Providers Care Medical Territory Manager Name Role Phone Bulmaro Brunner M.D. Primary Care Provider Reason for Visit * Reason Comments Medication Refill Encounter Details Date Type Department Care Team ([facility] st Contact Info) Description 02/28/2014 Refill [facility] Division of Psychiatry [address] [place] [address] Lisa Jones M.D. Psychiatry [address] [place] [address] [address] [place] [address] Medication Refill Social History Tobacco [...] on filedocumented in this encounter Care Teams Medical Territory Manager Relationship Specialty Start Date End Date Bulmaro Brunner M.D. [address] [place] [phone] PCP - General External Pediatrics 04/19/12 documented as of this encounter
--- OUTSIDE RECORDS SUMMARY | 2024-09-26 05:08 | XMS_ITS | Encounter Summary ---
Author Organization [facility] Address [address] [place] [address] Care Team Providers Care Correctional Case Manager Name Role Phone Bulmaro Brunner M.D. Primary Care Provider Reason for Visit * Reason Comments Medication Refill Encounter Details Date Type Department Care Team (Late st Contact Info) Description 11/27/2018 Refill [facility] Division of Psychiatry [address] [place] [address] Blaine Abraham, PRODUCTION LINE WELDER-SAFE AND VAULT SERVICE MECHANIC Psychiatry/Psychology - [facility] [address], [address] [place] [address] Medication Refill Social History Tobacco Use Types [...] file 09/08/2017 Safety and Environment Answer Date Laexey rded Do you have any concerns of [...] hyperactivity documented in this encounter Care Teams Correctional Case Manager Relationship Specialty Start Date End Date Bulmaro Brunner M.D. [address] [place] [phone] PCP - General External Pediatrics 04/19/12 documented as of this encounter
--- OUTSIDE RECORDS SUMMARY | 2024-09-26 05:08 | XMS_ITS | Encounter Summary ---
Author Organization [facility] Address [address] [place] [address] Care Team Providers Care Orthophoto Tech/Draftsman Name Role Phone Bulmaro Brunner M.D. Primary Care Provider Reason for Visit * Reason Comments Medication Refill Encounter Details Date Type Department Care Team ([facility] st Contact Info) Description 01/31/2014 Refill [facility] Division of Psychiatry [address] [place] [address] eMlany Ulloa M.D. Psychiatry [address] [facility] [address] [place], [place] [phone] Medication Refill Social History Tobacco Use Types [...] on filedocumented in this encounter Care Teams Orthophoto Tech/Draftsman Relationship Specialty Start Date End Date Bulmaro Brunner M.D. [address] [place] [phone] PCP - General External Pediatrics 04/19/12 documented as of this encounter
--- OUTSIDE RECORDS SUMMARY | 2024-09-26 05:08 | XMS_ITS | Encounter Summary ---
Author Organization [facility] Address [address] [place] [address] Care Team Providers Care Tubing Supervisor Name Role Phone Bulmaro Brunner M.D. Primary Care Provider Encounter Details Date Type Department Care Team (Late st Contact Info) Description 07/31/2018 Clinical Note [facility] Division of Dentistry [address] [place] [phone] Provider, Historical Social History Tobacco Use [...] encounter Progress Notes * Provider, Historical - 07/31/2018 12:00 AM EDT I was present in the clinic for the visit. I reviewed clinical and radiographic findings. I agree with the resident note and was immediately available for resident supervision. ~ Note authored by: Britton Flower () documented in this encounter Plan of Treatment Not on file documented as of this encounter Visit Diagnoses Not on filedocumented in this encounter Care Teams Tubing Supervisor Relationship Specialty Start Date End Date Bulmaro Brunner M.D. [address] [place] [phone] PCP - General External Pediatrics 04/19/12 documented as of this encounter
--- OUTSIDE RECORDS SUMMARY | 2024-09-26 05:09 | XMS_ITS | Encounter Summary ---
Author Organization [facility] Address [address] [place] [address] Care Team Providers Care Commercial Instructor Supervisor Name Role Phone Bulmaro Brunner M.D. Primary Care Provider Encounter Details Date Type Department Care Team (Late st Contact Info) Description 05/17/2023 Abstract [facility] Division of Dentistry [address] [place] [phone] Provider, Historical Social History Tobacco Use Types [...] Procedure Name Priority Date/Time Associated Diagnosis Comments RI PERIODIC ORAL EVALUATION - ESTABLISHED PATIENT Routine 07/31/2018 12:00 AM EDT RI PROPHYLAXIS - ADULT Routine 8 12:00 AM EDT RI PANORAMIC RADIOGRAPHIC IMAGE Routine 07/07/2017 12:00 AM EDT 15 O RI SEALANT - PER TOOTH Routine 03/22/2017 12:00 AM EST 2 O RI SEALANT - PER TOOTH Routine 03/22/2017 12:00 AM EST 7 RI INTRAORAL - PERIAPICAL FIRST RADIOGRAPHIC IMAGE Routine 01/06/2017 12:00 AM EDT RI PERIODIC ORAL EVALUATION - ESTABLISHED PATIENT Routine 07/01/2014 12:00 AM EDT 19 O RI SEALANT - PER TOOTH Routine 12/03/2011 12:00 AM EDT documented in this encounter Visit Diagnoses Not on filedocumented in this encounter Care Teams Commercial Instructor Supervisor Relationship Specialty Start Date End Date Bulmaro Brunner M.D. [address] [place] [phone] PCP - General External Pediatrics 04/19/12 documented as of this encounter
--- OUTSIDE RECORDS SUMMARY | 2024-09-26 05:09 | XMS_ITS | Encounter Summary ---
Author Organization [facility] Address [address] [place] [address] Care Team Providers Care Lead Esthetician Name Role Phone Bulmaro Brunner M.D. Primary Care Provider Reason for Visit * Reason Comments Medication Refill Encounter Details Date Type Department Care Team (Late st Contact Info) Description 07/15/2019 Refill [facility] Division of Psychiatry [address] [place] [address] Melany Ulloa M.D. Psychiatry [address] [facility] [address] [place], [place] [phone] Medication Refill Social History Tobacco Use Types [...] hyperactivity documented in this encounter Care Teams Lead Esthetician Relationship Specialty Start Date End Date Bulmaro Brunner M.D. [address] [place] [phone] PCP - General External Pediatrics 04/19/12 documented as of this encounter
--- OUTSIDE RECORDS SUMMARY | 2024-09-26 05:09 | XMS_ITS | Encounter Summary ---
Author Organization [facility] Address [address] [place] [address] Care Team Providers Care Warp Tension Tester Name Role Phone Bulmaro Brunner M.D. Primary Care Provider Reason for Visit * Reason Comments Medication Refill Encounter Details Date Type Department Care Team (Late st Contact Info) Description 03/14/2019 Refill [facility] Division of Psychiatry [address] [place] [address] Melany Ulloa M.D. Psychiatry [address] [facility] [address] [place], [place] [phone] Medication Refill Social History Tobacco Use Types [...] hyperactivity documented in this encounter Care Teams Warp Tension Tester Relationship Specialty Start Date End Date Bulmaro Brunner M.D. [address] [place] [phone] PCP - General External Pediatrics 04/19/12 documented as of this encounter
--- OUTSIDE RECORDS SUMMARY | 2024-09-26 05:09 | XMS_ITS | Encounter Summary ---
Author Organization [facility] Address [address] [place] [address] Care Team Providers Care Passenger Car Upholsterer Apprentice Name Role Phone Bulmaro Brunner M.D. Primary Care Provider Reason for Visit * Reason Comments Medication Refill Encounter Details Date Type Department Care Team (Late st Contact Info) Description 03/31/2018 Refill [facility] Division of Psychiatry [address] [place] [address] Melany Ulloa M.D. Psychiatry [address] [facility] [address] [place], [place] [phone] Medication Refill Social History Tobacco Use Types [...] disorder documented in this encounter Care Teams Passenger Car Upholsterer Apprentice Relationship Specialty Start Date End Date Bulmaro Brunner M.D. [address] [place] [phone] PCP - General External Pediatrics 04/19/12 documented as of this encounter
--- OUTSIDE RECORDS SUMMARY | 2024-09-26 05:09 | XMS_ITS | Encounter Summary ---
Author Organization [facility] Address [address] [place] [address] Care Team Providers Care Propagation Worker Name Role Phone Bulmaro Brunner M.D. Primary Care Provider Reason for Visit * Reason Comments Medication Refill Encounter Details Date Type Department Care Team (Late st Contact Info) Description 07/25/2020 Refill [facility] Division of Psychiatry [address] [place] [address] Melany Ulloa M.D. Psychiatry [address] [facility] [address] [place] [address] Medication Refill Social History Tobacco Use Types [...] as of this encounter Miscellaneous Notes * Telephone Encounter - Cinda Rashid, Engineering Assistant - 07/25/2020 9:46 AM EDT REFILL DENIAL Refill received for Brice er 300 mg from [facility] via escribe. Refill denied r/t Other sent 06/10/20 with 4 refills documented in this encounter Plan of Treatment Not on file documented as of this encounter Visit Diagnoses Diagnosis Bipolar I disorder, most recent episode (or current) manic Bipolar I disorder, most recent episode (or current) manic, unspecified Attention deficit hyperactivity disorder, combined type Attention deficit disorder with hyperactivity Regular astigmatism of both eyes Regular astigmatism Seizure disorder Unspecified epilepsy without mention of intractable epilepsy Intellectual disability Unspecified intellectual disabilities Major depressive disorder, single episode, severe with psychotic features Major depressive disorder, single episode, severe, specified as with psychotic behavior Generalized lymphadenopathy Enlargement of lymph nodes Eosinophilia Intermittent explosive disorder Suicidal ideation Language impairment Other speech disturbance Trichotillomania Other disorder of impulse control Mood disorder Unspecified episodic mood disorder Myopia, unspecified laterality Regular astigmatism, unspecified laterality Generalized epilepsy Unspecified epilepsy without mention of intractable epilepsy Other specified anxiety disorders Adjustment disorder with other symptom Impaired cognition Unspecified persistent mental disorders due to conditions classified elsewhere documented in this encounter Care Teams Propagation Worker Relationship Specialty Start Date End Date Bulmaro Brunner M.D. CHAPARRO: [phone] [address] [place] [phone] PCP - General External Pediatrics 04/19/12 documented as of this encounter
--- OUTSIDE RECORDS SUMMARY | 2024-09-26 05:09 | XMS_ITS | Encounter Summary ---
Author Organization [facility] Address [address] [place] [address] Care Team Providers Care Nuclear Cardiology Technologist Name Role Phone Bulmaro Brunner M.D. Primary Care Provider Reason for Visit * Reason Comments Medication Refill Encounter Details Date Type Department Care Team ([facility] st Contact Info) Description 05/14/2015 Refill [facility] Division of Psychiatry [address] [place] [address] Melany Ulloa M.D. Psychiatry [address] [place] [address] [address] [place], [place] [phone] Medication Refill Social History Tobacco Use Types [...] on filedocumented in this encounter Care Teams Nuclear Cardiology Technologist Relationship Specialty Start Date End Date Bulmaro Brunner M.D. [address] [place] [phone] PCP - General External Pediatrics 04/19/12 documented as of this encounter
--- OUTSIDE RECORDS SUMMARY | 2024-09-26 05:09 | XMS_ITS | Encounter Summary ---
Author Organization [facility] Address [address] [place] [address] Care Team Providers Care Inspector Handbag Frames Name Role Phone Bulmaro Brunner M.D. Primary Care Provider Reason for Visit * Reason Onset Date Comments Medication Refill 05/13/2019 amphetamine-de xtroamphetamine (ADDERALL XR) 30 MG extended release capsule Encounter Details Date Type Department Care Team (Late st Contact Info) Description 05/13/2019 Refill [facility] Division of Neurology [address] [place] [address] Chava Esteves M.D. Neurology [address] [place] [phone] Medication Refill (amphetamine-dextroamphe tamine (ADDERALL XR) 30 MG extended release capsule ) Social History Tobacco Use Types Packs/Day Years [...] encounter Miscellaneous Notes * Telephone Encounter - Sindy Valdez APRN-CNP - 05/14/2019 9:56 AM EST RF approved as outlined. * Telephone Encounter - Morenita Powell Medical Asst - 05/14/2019 9:20 AM EST Medication refill request for: amphetamine-dextroamphetamine (ADDERALL XR) 30 MG extended release capsule Medication dose, strength, and quantity verified? yes Last recorded patient weight: Wt Readings from Last 1 Encounters: 04/19/19 : 58.3 kg (13 %, Z= -1.15)* * Growth percentiles are based on CDC (Boys, 2-20 Years) data. Last Visit: 04/19/2019; [facility]; CHAVA ESTEVES Advised to follow up in: 6 months Follow up appointment: 11/22/2019; [facility]; CHAVA ESTEVES; BILLY DES MYCHART Action: Refill pended to Dr. Esteves for review Pharmacy: [facility] [address] [place] [address] RO[address] [phone] documented in this encounter Plan of Treatment [...] elsewhere documented in this encounter Care Teams Inspector Handbag Frames Relationship Specialty Start Date End Date Bulmaro Brunner M.D. [address] [place] [phone] PCP - General External Pediatrics 04/19/12 documented as of this encounter
--- OUTSIDE RECORDS SUMMARY | 2024-09-26 05:09 | XMS_ITS | Encounter Summary ---
Author Organization [facility] Address [address] [place] [address] Care Team Providers Care Engineering Laboratory Technician Name Role Phone Bulmaro Brunner M.D. Primary Care Provider Encounter Details Date Type Department Care Team (Late st Contact Info) Description 04/24/2013 Clinical Note [facility] Division of Dentistry [address] [place] [phone] Provider, Historical Social History Tobacco Use [...] encounter Progress Notes * Provider, Historical - 04/24/2013 12:00 AM EST P: Periodic recall exam.~T: Reviewed PMH.~EOE: No signs of facial swelling and facial asymmetry. Nosensitive lymph nodes or swollen.~IOE: Soft tissues WNL; exam noted in clinical chart. Sealants on the 6 year molars need to be replaced~Radiographs not indicated~~Prophy, Fluoride application, OHI.~E: ++ he did well today and asked good questions~N: RTC re-seal 6's~Radiograph prescription for nextrecall - BWs~~I approve the patient-related information obtained by the assistant professor of mathematics, hygienist, resident and/or attending pertaining to the patient's condition, findings, history and/or treatment.~Noteauthored by: Elma Rashid ([email or web address]) documented in this encounter Plan of Treatment Not on file documented as of this encounter Visit Diagnoses Not on filedocumented in this encounter Care Teams Engineering Laboratory Technician Relationship Specialty Start Date End Date Bulmaro Brunner M.D. [facility] [place] [address] PCP - General External Pediatrics 04/19/12 documented as of this encounter
--- OUTSIDE RECORDS SUMMARY | 2024-09-26 05:09 | XMS_ITS | Encounter Summary ---
Author Organization [facility] Address [address] [place] [address] Care Team Providers Care Metal Mine Inspector Name Role Phone Bulmaro Brunner M.D. Primary Care Provider Encounter Details Date Type Department Care Team (Late st Contact Info) Description 05/17/2023 Abstract [facility] Division of Dentistry [address] [place] [phone] Provider, Historical Social History Tobacco Use [...] Procedure Name Priority Date/Time Associated Diagnosis Comments 11 F MO RESIN-BASED COMPOSITE - ONE SURFACE, ANTERIOR Routine 03/16/2017 12:00 AM EST MO PERIODIC ORAL EVALUATION - ESTABLISHED PATIENT Routine 01/06/2017 12:00 AM EDT 3 O MO SEALANT - PER TOOTH Routine 12/03/2011 12:00 AM EDT MO BITEWINGS - TWO RADIOGRAPHIC IMAGES Routine 07/30/2011 12:00 AM EDT documented in this encounter Visit Diagnoses Not on filedocumented in this encounter Care Teams Metal Mine Inspector Relationship Specialty Start Date End Date Bulmaro Brunner M.D. [facility] [place] [address] PCP - General External Pediatrics 04/19/12 documented as of this encounter
--- OUTSIDE RECORDS SUMMARY | 2024-09-26 05:09 | XMS_ITS | Encounter Summary ---
Author Organization [facility] Address [address] [place] [address] Care Team Providers Care Clinical Account Liaison Name Role Phone Bulmaro Brunner M.D. Primary Care Provider Encounter Details Date Type Department Care Team (Late st Contact Info) Description 05/17/[address] [facility] Division of Dentistry [address] [place] [phone] Provider, Historical Social History Tobacco Use [...] Procedure Name Priority Date/Time Associated Diagnosis Comments WA BITEWINGS - TWO RADIOGRAPHIC IMAGES Routine 01/06/2017 12:00 AM EDT 19 AUBRIE WA SEALANT - PER TOOTH Routine 06/01/2013 12:00 AM EST WA PERIODIC ORAL EVALUATION - ESTABLISHED PATIENT Routine 04/24/2013 12:00 AM EST documented in this encounter Visit Diagnoses Not on filedocumented in this encounter Care Teams Clinical Account Liaison Relationship Specialty Start Date End Date Bulmaro Brunner M.D. [address] [place] [phone] PCP - General External Pediatrics 04/19/12 documented as of this encounter
--- OUTSIDE RECORDS SUMMARY | 2024-09-26 05:09 | XMS_ITS | Encounter Summary ---
Author Organization [facility] Address [address] [place] [address] Care Team Providers Care Paper Cone Machine Tender Name Role Phone Bulmaro Brunner M.D. Primary Care Provider Reason for Visit * Reason Comments Medication Refill lithium carbonate 15 0 MG capsule Encounter Details Date Type Department Care Team (Late st Contact Info) Description 06/09/2017 Refill [facility] Division of Neurology [address] [place] [address] Melany Ulloa M.D. Psychiatry [address] [facility] [address] [place] [address] Medication Refill (lithium carbonate 150 MG capsule) Social History Tobacco Use Types Packs/Day Years [...] encounter Miscellaneous Notes * Telephone Encounter - Shelley Reece, Special Skills Officer - 06/10/2017 12:53 PM EST Patient is doing 300mg please deny. * Telephone Encounter - Shelley Reece Special Skills Officer - 06/10/2017 11:20 AM EST LMOM for mom to call back. * Telephone Encounter - Shelley Reece Special Skills Officer - 06/10/2017 10:44 AM EST Medication refill request for: lithium carbonate 150 MG capsule Medication dose, strength, and quantity verified? yes Last recorded patient weight: Wt Readings from Last 1 Encounters: 04/07/17 : 52.5 kg (9 %, Z= -1.33)* * Growth percentiles are based on [facility] 2-20 Years data. Last Visit: 04/07/2017; [facility]; CHAVA ESTEVES; BILLY NUNES Advised to follow up in: 6 months Follow up appointment: No appointment found Action: Refill pended to Dr. Esteves for review [facility] [address] [place] [address] [place] [address] [facility] [phone] documented in this encounter Plan of Treatment [...] hyperactivity documented in this encounter Care Teams Paper Cone Machine Tender Relationship Specialty Start Date End Date Bulmaro Brunner M.D. NIKII: [phone] [address] [place] [address] PCP - General External Pediatrics 04/19/12 documented as of this encounter
--- OUTSIDE RECORDS SUMMARY | 2024-09-26 05:09 | XMS_ITS | Encounter Summary ---
Author Organization [facility] Address [address] [place] [address] Care Team Providers Care Automatic Machines Supervisor Name Role Phone Bulmaro Brunner M.D. Primary Care Provider Encounter Details Date Type Department Care Team (Late st Contact Info) Description 01/12/2018 Clinical Note [facility] Division of Dentistry [address] [place] [phone] Provider, Historical Social History Tobacco Use [...] this encounter Progress Notes * ProviderSanjuana - 01/12/2018 12:00 AM EDT Dentist/Seismograph Recorder/Hygienist verified correct patient. ~~: /04/18 ~~Pain?: Yes____ No ___x_ ~Pain Score for visit:____0___ ~Pain Scale used: (choose one: Faces___, Numeric Rating Scale__x_, FLACC___.) ~Note authored by: Courtney Peters ([email or web address]) documented in this encounter Plan of Treatment Not on file documented as of this encounter Visit Diagnoses Not on filedocumented in this encounter Care Teams Automatic Machines Supervisor Relationship Specialty Start Date End Date Bulmaro Brunner M.D. [address] [place] [phone] PCP - General External Pediatrics 04/19/12 documented as of this encounter
--- OUTSIDE RECORDS SUMMARY | 2024-09-26 05:09 | XMS_ITS | Encounter Summary ---
Author Organization [facility] Address [address] [place] [address] Care Team Providers Care Ecdis N Navigation Operator Name Role Phone Bulmaro Brunner M.D. Primary Care Provider Encounter Details Date Type Department Care Team (Late st Contact Info) Description 05/17/2023 Abstract [facility] Division of Dentistry [address] [place] [phone] Provider, Historical Social History Tobacco Use [...] Name Priority Date/Time Associated Diagnosis Comments RI TOPICAL APPLICATION OF FLUORIDE VARNISH Routine 07/07/2017 12:00 AM EDT 30 O RI SEALANT - PER TOOTH Routine 12/03/2011 12:00 AM EDT 14 O RI SEALANT - PER TOOTH Routine 12/03/2011 12:00 AM EDT documented in this encounter Visit Diagnoses Not on filedocumented in this encounter Care Teams Ecdis N Navigation Operator Relationship Specialty Start Date End Date Bulmaro Brunner M.D. [address] [place] [phone] PCP - General External Pediatrics 04/19/12 documented as of this encounter
--- OUTSIDE RECORDS SUMMARY | 2024-09-26 05:09 | XMS_ITS | Encounter Summary ---
Author Organization [facility] Address [address] [place] [address] Care Team Providers Care Community Relations Specialist Name Role Phone Bulmaro Brunner M.D. Primary Care Provider Encounter Details Date Type Department Care Team (Late st Contact Info) Description 06/01/2013 Clinical Note [facility] Division of Dentistry [address] [place] [phone] Provider, Historical Social History Tobacco Use [...] encounter Progress Notes * Provider, Historical - 06/01/2013 12:00 AM EST Dentist/Clay Worker verified correct patient identification, procedures with materials and special equipment if needed, images or relevant labs, irrigation solutions (other than water), need for antibiotics, precautions based on medical or medication history.~~:___2000 ~~Name of Participants in the Time Out: Dr Parth GUZMAN/Lalitha CDA ~~Pain?: Yes____ No __x__~Pain Score for visit:__0 ~Pain Scale used: (choose one: Faces___, Numeric Rating Scale___0, FLACC___.)~~Note authored by: Bebe Doty ([email or web address]) documented in this encounter Plan of Treatment Not on file documented as of this encounter Visit Diagnoses Not on filedocumented in this encounter Care Teams Community Relations Specialist Relationship Specialty Start Date End Date Bulmaro Brunner M.D. [address] [place] [phone] PCP - General External Pediatrics 04/19/12 documented as of this encounter
--- OUTSIDE RECORDS SUMMARY | 2024-09-26 05:09 | XMS_ITS | Clinical Summary ---
Author Organization [facility] Address [address] [place] [address] Care Team Providers Care Residential Framing Carpenter Name Role Phone Bulmaro Brunner M.D. Primary Care Provider Source Comments [facility] is fully rolled out with thefollowing exceptions:General Clinical Research [facility] Allergies Active Allergy Reactions Criticality Noted Date Comments Alcohol Rash 07/18/2008 Pt breaks out in rash when alcohol wipes are used prior to blood draws. Medications cholecalciferol (VITAMIN D) 50 MCG (1999 UT) capsuleIndications :Generalized lymphadenopathy,Eo sinophilia,Major depressive disorder, single episode, severe with psychotic features,Suicidal ideation,Seizure disorder,Intermitt ent explosive disorder,Language impairment,Bipolar I disorder, most recent episode (or current) manic,Intellectual disability,Trichot illomania,Attentio n deficit hyperactivity disorder, combined type,Mood disorder,Myopia, unspecified laterality,Regular astigmatism, unspecified laterality,General ized epilepsy,Other specified anxiety disorders,Adjustme nt disorder with other symptom,Impaired cognition,Regular astigmatism of both eyes Take 2 Caps (4,000 Units total) by mouth 1 time a day. TAKE 2 CAPSULES BY MOUTH ONCE DAILY 60 Cap 11 0 Active buPROPion (WELLBUTRIN-XL) 150 MG extended release tablet Take 1 tablet (150 mg total) by mouth 1 time a day. 90 tablet 1 1 Active lithium 300 MG extended release tabletIndications: Bipolar I disorder, most recent episode (or current) manic,Attention deficit hyperactivity disorder, combined type,Regular astigmatism of both eyes,Seizure disorder,Intellect ual disability,Major depressive disorder, single episode, severe with psychotic features,Generaliz ed lymphadenopathy,Eo sinophilia,Intermi ttent explosive disorder,Suicidal ideation,Language impairment,Trichot illomania,Mood disorder,Myopia, unspecified laterality,Regular astigmatism, unspecified laterality,General ized epilepsy,Other specified anxiety disorders,Adjustme nt disorder with other symptom,Impaired cognition Take 1 tablet (300 mg total) by mouth 1 time a day. 30 tablet 4 1 Active OLANZapine (ZyPREXA) 2.5 MG tabletIndications: Bipolar I disorder, most recent episode (or current) manic,Attention deficit hyperactivity disorder, combined type,Regular astigmatism of both eyes,Seizure disorder,Intellect ual disability,Major depressive disorder, single episode, severe with psychotic features,Generaliz ed lymphadenopathy,Eo sinophilia,Intermi ttent explosive disorder,Suicidal ideation,Language impairment,Trichot illomania,Mood disorder,Myopia, unspecified laterality,Regular astigmatism, unspecified laterality,General ized epilepsy,Other specified anxiety disorders,Adjustme nt disorder with other symptom,Impaired cognition TAKE ONE TABLET BY MOUTH EVERY EVENING 90 tablet 1 1 Active risperiDONE (RisperDAL) 0.5 MG tabletIndications: Bipolar I disorder, most recent episode (or current) manic,Attention deficit hyperactivity disorder, combined type,Regular astigmatism of both eyes,Seizure disorder,Intellect ual disability,Major depressive disorder, single episode, severe with psychotic features,Generaliz ed lymphadenopathy,Eo sinophilia,Intermi ttent explosive disorder,Suicidal ideation,Language impairment,Trichot illomania,Mood disorder,Myopia, unspecified laterality,Regular astigmatism, unspecified laterality,General ized epilepsy,Other specified anxiety disorders,Adjustme nt disorder with other symptom,Impaired cognition Take 1 tablet (0.5 mg total) by mouth 2 times a day. 60 tablet 5 1 Active amphetamine-dextro amphetamine (ADDERALL XR) 30 MG extended release capsuleIndications :Bipolar I disorder, most recent episode (or current) manic,Attention deficit hyperactivity disorder, combined type,Regular astigmatism of both eyes,Seizure disorder,Intellect ual disability,Major depressive disorder, single episode, severe with psychotic features,Generaliz ed lymphadenopathy,Eo sinophilia,Intermi ttent explosive disorder,Suicidal ideation,Language impairment,Trichot illomania,Mood disorder,Myopia, unspecified laterality,Regular astigmatism, unspecified laterality,General ized epilepsy,Other specified anxiety disorders,Adjustme nt disorder with other symptom,Impaired cognition Take 1 capsule (30 mg total) by mouth every morning. 30 day supply. 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 Mood disorder 05/15/2015 Intellectual disability 12/27/2013 Trichotillomania 12/27/2013 Attention deficit hyperactivity disorder, combin ed type 12/27/2013 Other signs and symptoms involving cognition Bipolar I disorder, most recent episode (or curr ent) manic 09/04/2013 Adjustment disorder 03/01/2013 Anxiety disorder 12/14/2012 Epilepsy 09/03/2010 Language impairment 08/06/2010 Overview (08/06/2010): Moderate receptive; severe expressive; mild pragmatic Intermittent explosive disorder 07/18/2010 Suicidal ideation 06/11/2010 Seizure disorder 06/11/2010 Major depressive disorder, s yg episode, severe with psychotic features 06/10/2010 Tiredness 06/28/2008 Generalized lymphadenopathy 06/17/2008 Eosinophilia 06/17/2008 Myopia 10/18/2007 Regular astigmatism 10/18/2007 Resolved Problems Problem Noted Date Diagnosed Date Resolved Date Epilepsy 06/17/2008 06/27/2008 Immunizations Immunization Administration Dates Next Due Influenza Vaccine 0.5 mL - f or patients 6 months and older 01/20/2017,03/27/2015,01/31/2014,2012,01/16/2011 Family History Medical History Relation Name Comments Alcoholism/Substance Abuse Maternal Grandfather Suicide Attempt(s) Maternal Grandfather Anxiety Maternal Grandmother Anxiety Disorder Maternal Grandmother Depression Maternal Grandmother Other Maternal Grandmother Bipolar Disorder Mother Hypercholesterolemia Mother Hypothyroidism Mother Other Mother Suicide Attempt(s) Mother Schizophrenia/Psychosis Other Maternal great-gr andfath ADHD/ADD Sister Anxiety Sister Amblyopia Neg Hx Blindness Neg Hx Cataracts/Lee.Childhood Neg Hx Eye Muscle Surgery Neg Hx Glaucoma/Lee.Childhood Neg Hx Nystagmus Neg Hx Ptosis Neg Hx Strabismus Neg Hx Relation Name Status Comments Maternal Grandfather Maternal Grandmother Mother Alive Other Maternal great-grandfath Sister Social History Tobacco Use Types Packs/Day Years [...] Sign Reading Time Taken Comments Blood Pressure 132/77 04/19/2019 11:50 AM EST Pulse 101 04/19/2019 11:50 AM EST Temperature 36.7 C (98.1 F) 08/01/2016 6:12 PM EDT Respiratory Rate 20 08/01/2016 6:12 PM EDT Oxygen Saturation - - Inhaled Oxygen Concentration - - Weight 58.3 kg (128 lb 8.5 oz) 04/19/2019 11:50 AM EST Height 179.9 cm (5' 10.83 ) 04/19/2019 11:50 AM EST Body Mass Index 18.01 04/19/2019 11:50 AM EST Plan of Treatment Health Maintenance Due Date Last Done Comments MMR IMMUNIZATION (1 of 1 - Standard series) 2001 DTAP/Tdap/Td IMMUNIZATION (1 - Tdap) 2007 VARICELLA IMMUNIZATION (1 of 2 - 13+ 2-dose series) 2013 HPV IMMUNIZATION (1 - Male 3-dose series) 2015 Dental X-Ray: Bitewings 01/13/2019 01/13/20 18, 01/06/2017, 07/01/2014, Additional history exists Dental Oral Exam 01/31/2019 07/31/2018, , 07/07/2017, Additional history exists Dental Prophylaxis 01/31/2019 07/31/2018, 0 01/12/2018, 07/07/2017, Additional history exists HEPATITIS B IMMUNIZATION (1 of 3 - 19+ 3-dose series) 2019 Dental X-Ray: Full Mouth 07/08/2020 07/07/2017 COVID-19 Vaccine ( - season) 2023 AMB SEASONAL FLU VACCINE (Season Ended) 2024 01/20/2017, 03/27/2015, 01/31/2014, Additional history exists HIB IMMUNIZATION Aged Out No longer e ligible based on patient's age to complete this topic IPV IMMUNIZATION Aged Out No longer e ligible based on patient's age to complete this topic MCV4 IMMUNIZATION Aged Out No longer eligible based on patient's age to complete this topic MENINGOCOCCAL B VACCINE Aged Out No l onger eligible based on patient's age to complete this topic PNEUMOCOCCAL IMMUNIZATION Aged Out No longer eligible based on patient's age to complete this topic Respiratory Syncytial Virus (RSV) <20mo Aged Out No longer eligible based on patient's age to complete this topic Procedures Procedure Name Priority Date/Time Associated Diagnosis Comments IL PROPHYLAXIS - ADULT Routine 9 12:00 AM EDT [place] PERIODIC ORAL EVALUATION - ESTABLISHED PATIENT Routine 07/31/2018 12:00 AM EDT IL BITEWINGS - TWO RADIOGRAPHIC IMAGES Routine 01/12/2018 12:00 AM EDT IL PANORAMIC RADIOGRAPHIC IMAGE Routine 07/07/2017 12:00 AM EDT from Last 3 Months or Most Recently Relevant to Health Maintenance Insurance [employer] Member Subscriber Plan / Payer (Ef fective 2012-Present) Name:Avelino Meyers Relation to Subscriber:Self Name:Avelino Meyers Payer ID:[id number] (NAIC) Group ID:[id number] Type:O Medicaid Address: [address] [place] [id number] [employer] Care Teams Residential Framing Carpenter Relationship Specialty Start Date End Date Bulmaro Brunner M.D. [address] [place] [phone] PCP - General External Pediatrics 04/19/12
--- OUTSIDE RECORDS SUMMARY | 2024-09-26 05:09 | XMS_ITS | Encounter Summary ---
Author Organization [facility] Address [address] [place] [address] Care Team Providers Care Spray Foam Installer Name Role Phone Bulmaro Brunner M.D. Primary Care Provider Encounter Details Date Type Department Care Team (Late st Contact Info) Description 07/07/2017 Clinical Note [facility] Division of Dentistry [address] [place] [phone] Provider, Historical Social History Tobacco Use [...] encounter Progress Notes * Provider, Historical - 07/07/2017 12:00 AM EDT P: Periodic recall exam (patient back alone, accompanied by MOC) ~T: Reviewed PMH - positive for bipolar I disorder, intellectual disability, intermittent explosive disorder, depression, ADHD, seizures, anxiety disorder, adjustment disorder and allergy to alcohol. ~EOE: WNL, bilateral symmetry, asymptomatic TMJ~IOE: no soft tissue pathology, permanent dentition, incipient caries as charted upon clinical exam. 1 BRISCOE radiograph taken, read, dx: findings as charted. Provided MOC with oral surgery referral to evaluate third molars. ~Prophy, Fluoride varnish application, OHI. ~E: ++ ~N: RTC 6 mo recall. ~Radiograph prescription for next recall - 4 bitewing radiographs ~~I approve the patient-related information obtained by the call center assistant, hygienist, resident and/or attending pertaining to the patient's condition, findings, history and/or treatment.~Note authored by: Beulah Feliciano ([email or web address]) documented in this encounter Plan of Treatment Not on file documented as of this encounter Visit Diagnoses Not on filedocumented in this encounter Care Teams Spray Foam Installer Relationship Specialty Start Date End Date Bulmaro Brunner M.D. [address] [place] [phone] PCP - General External Pediatrics 04/19/12 documented as of this encounter
--- OUTSIDE RECORDS SUMMARY | 2024-09-26 05:09 | XMS_ITS | Encounter Summary ---
Author Organization [facility] Address [address] [place] [address] Care Team Providers Care Cullet Trucker Name Role Phone Bulmaro Brunner M.D. Primary Care Provider Encounter Details Date Type Department Care Team (Late st Contact Info) Description 05/17/2023 Abstract [facility] Division of Dentistry [address] [place] [phone] Provider, Historical Social History Tobacco Use [...] Procedure Name Priority Date/Time Associated Diagnosis Comments NE PROPHYLAXIS - ADULT Routine 07/31/2018 12:00 AM EDT documented in this encounter Visit Diagnoses Not on filedocumented in this encounter Care Teams Cullet Trucker Relationship Specialty Start Date End Date Bulmaro Brunner M.D. [address] [place] [phone] PCP - General External Pediatrics 04/19/12 documented as of this encounter
--- OUTSIDE RECORDS SUMMARY | 2024-09-26 05:09 | XMS_ITS | Encounter Summary ---
Author Organization [facility] Address [address] [place] [address] Care Team Providers Care Jailer Name Role Phone Bulmaro Brunner M.D. Primary Care Provider Reason for Visit * Reason Comments Medication Refill Encounter Details Date Type Department Care Team (Late st Contact Info) Description 05/13/2015 Telephone [facility] Division of Psychiatry [address] [place] [address] Melany Ulloa M.D. Psychiatry [address] [place] [address] [address] [place] [address] Medication Refill Social History Tobacco [...] encounter Miscellaneous Notes * Telephone Encounter - Krystle Gomes - 05/13/2015 10:09 AM EST Per pharmacy fax, needs refills on lithium, olanzapine, and risperidone. documented in this encounter Plan of Treatment Not on file documented as of this encounter Visit Diagnoses Not on filedocumented in this encounter Care Teams Jailer Relationship Specialty Start Date End Date Bulmaro Brunner M.D. [address] [place] [phone] PCP - General External Pediatrics 04/19/12 documented as of this encounter
--- OUTSIDE RECORDS SUMMARY | 2024-09-26 05:09 | XMS_ITS | Encounter Summary ---
Author Organization [facility] Address [address] [place] [address] Care Team Providers Care Beam Builder Helper Name Role Phone Bulmaro Brunner M.D. Primary Care Provider Encounter Details Date Type Department Care Team (Late st Contact Info) Description 06/01/2013 Clinical Note [facility] Division of Dentistry [address] [place] [phone] Provider, Historical Social History Tobacco Use [...] encounter Progress Notes * Provider, Sanjuana - 06/01/2013 12:00 AM EST I was present for the procedure. Reviewed the resident note and concurred.~Note authored by: Tylor Obregon ([email or web address]) documented in this encounter Plan of Treatment Not on file documented as of this encounter Visit Diagnoses Not on filedocumented in this encounter Care Teams Beam Builder Helper Relationship Specialty Start Date End Date Bulmaro Brunner M.D. [facility] [place] [address] PCP - General External Pediatrics 04/19/12 documented as of this encounter
--- OUTSIDE RECORDS SUMMARY | 2024-09-26 05:09 | XMS_ITS | Encounter Summary ---
Author Organization [facility] Address [address] [place] [address] Care Team Providers Care Flow Manager Name Role Phone Bulmaro Brunner M.D. Primary Care Provider Encounter Details Date Type Department Care Team (Late st Contact Info) Description 05/17/2023 Abstract [facility] Division of Dentistry [address] [place] [phone] Provider, Historical Social History Tobacco Use [...] Procedure Name Priority Date/Time Associated Diagnosis Comments NV TOPICAL APPLICATION OF FLUORIDE VARNISH Routine 07/31/2018 12:00 AM EDT NV TOPICAL APPLICATION OF FLUORIDE VARNISH Routine 01/12/2018 12:00 AM EDT NV PERIODIC ORAL EVALUATION - ESTABLISHED PATIENT Routine 01/12/2018 12:00 AM EDT NV PROPHYLAXIS - CHILD Routine 4 12:00 AM EST documented in this encounter Visit Diagnoses Not on filedocumented in this encounter Care Teams Flow Manager Relationship Specialty Start Date End Date Bulmaro Brunner M.D. [address] [place] [phone] PCP - General External Pediatrics 04/19/12 documented as of this encounter
--- OUTSIDE RECORDS SUMMARY | 2024-09-26 05:09 | XMS_ITS | Encounter Summary ---
Author Organization [facility] Address [address] [place] [address] Care Team Providers Care Slot Manager Name Role Phone Bulmaro Brunner M.D. Primary Care Provider Reason for Visit * Reason Comments Medication Refill Encounter Details Date Type Department Care Team (Late st Contact Info) Description 01/16/2020 Refill [facility] Division of Psychiatry [address] [place] [address] Melany Ulloa M.D. Psychiatry [address] [facility] [address] [place], [place] [phone] Medication Refill Social History Tobacco Use Types [...] encounter Miscellaneous Notes * Telephone Encounter - Saúl Metzger - 01/16/2020 9:04 AM EDT Denied as med was sent in 11/2019 with a 30 day supply and 2 refills documented in this encounter Plan of Treatment Not on file documented as of this encounter Visit Diagnoses Diagnosis Bipolar I disorder, most recent episode (or current) manic Bipolar I disorder, most recent episode (or current) manic, unspecified Attention deficit hyperactivity disorder, combined type Attention deficit disorder with hyperactivity documented in this encounter Care Teams Slot Manager Relationship Specialty Start Date End Date Bulmaro Brunner M.D. CHAPARRO: [id number] [facility] [place] [phone] PCP - General External Pediatrics 04/19/12 documented as of this encounter
--- OUTSIDE RECORDS SUMMARY | 2024-09-26 05:09 | XMS_ITS | Encounter Summary ---
Author Organization [facility] Address [address] [place] [address] Care Team Providers Care Dimensional Engineer Name Role Phone Bulmaro Brunner M.D. Primary Care Provider Encounter Details Date Type Department Care Team (Late st Contact Info) Description 06/01/2013 Clinical Note [facility] Division of Dentistry [address] [place] [phone] Provider, Historical Social History Tobacco Use [...] Provider, Historical - 06/01/2013 12:00 AM EST P: Sealants.~T: Reviewed PMH.~CR iso/MP~#3, 14, 19, 30 - A/E, Optibond, Clinpro sealant.~Discussed POI.~E: ++~N: RTC 6 mo recall.~~I approve the patient-related information obtained by the sociology research assistant,hygienist, resident and/or attending pertaining to the patient's condition, findings, history and/or treatment.~Note authored by: Wicho Alba ([email or web address]) documented in this encounter Plan of Treatment Not on file documented as of this encounter Visit Diagnoses Not on filedocumented in this encounter Care Teams Dimensional Engineer Relationship Specialty Start Date End Date Bulmaro Brunner M.D. [facility] [place] [address] PCP - General External Pediatrics 04/19/12 documented as of this encounter
--- OUTSIDE RECORDS SUMMARY | 2024-09-26 05:09 | XMS_ITS | Encounter Summary ---
Author Organization [facility] Address [address] [place] [address] Care Team Providers Care Mva Reactor Operator Head Name Role Phone Bulmaro Brunner M.D. Primary Care Provider Encounter Details Date Type Department Care Team (Late st Contact Info) Description 01/12/2018 Clinical Note [facility] Division of Dentistry [address] [place] [phone] Provider, Historical Social History Tobacco Use [...] * ProviderSanjuana - 01/12/2018 12:00 AM EDT P: FRANSISCA~T: [facility]. ~EOE: No asymmetry, no swelling, no lymphadenopathy~IOE: No swelling, OCS: WNL, OHI: fair, no hard tissue or soft tissue pathology ~2 BWs taken, read, findings charted and discussed incipients with MOC ~Prophy, exam, fluoride varnish application, OHI~-Discussed brushing 2x day and flossing once a day~-Discussed elimination of sugary juice/drinks and limiting drinks to water ~E: ++~N: 6MR ~Radiographs for next recall ? None ~I approve the patient- related information obtainedby the junior assistant manager, hygienist, resident and/or attending pertaining to the patient's condition, findings, history and/or treatment.~Note authored by: Tete Saleh ([email or web address]) documented in this encounter Plan of Treatment Not on file documented as of this encounter Visit Diagnoses Not on filedocumented in this encounter Care Teams Mva Reactor Operator Head Relationship Specialty Start Date End Date Bulmaro Brunner M.D. [address] [place] [phone] PCP - General External Pediatrics 04/19/12 documented as of this encounter
--- OUTSIDE RECORDS SUMMARY | 2024-09-26 05:09 | XMS_ITS | Clinical Summary ---
Author Organization [facility] Address [address] [place] [address] Care Team Providers Care Wet Crown Blocking Operator Name Role Phone PcpBonnie Primary Care Provider [phone] Source Comments This information has been disclosed to you from confidential records protectedfrom disclosure by state law. You shall make no further disclosure of thisinformation without the specific, written, and informed release of theindividual to whom it pertains, or as otherwise permitted by law. A generalauthorization for the release of medical or other information is not sufficientfor the purposes of therelease of HIV test results or diagnoses. [id number] Active Problems Problem Noted Date Diagnosed Date Bipolar 1 disorder 03/20/2024 ADHD (attention deficit hype ractivity disorder), combined type 03/20/2024 Social History Tobacco Use Types Packs/Day Years Used Date Smoking Tobacco: Never Assessed AUDIT-C Answer Date Recorded Q1: How often do you have a drink containing alc ohol? Never 03/19/2024 Q2: How many drinks containi ng alcohol do you have on a typical day when you are drinking? Patient declined 03/19/2024 Q3: How often do you have si x or more drinks on one occasion? Never 03/19/2024 Sex and Gender Information Value Date Recorded Sex Assigned at Not on file Legal Sex Male 8:36 PM EST Gender Identity Not on file Sexual Orientation Not on file Plan of Treatment Not on file Care Teams Wet Crown Blocking Operator Relationship Specialty Start Date End Date PcpBonnie No Address PCP - General 02/29/24
--- OUTSIDE RECORDS SUMMARY | 2024-09-26 05:09 | XMS_ITS | Encounter Summary ---
Author Organization [facility] Address [address] [place] [address] Care Team Providers Care Travel Physical Therapist Name Role Phone Bulmaro Brunner M.D. Primary Care Provider Reason for Visit * Reason Comments Medication Refill Encounter Details Date Type Department Care Team (Late st Contact Info) Description 05/14/2019 Refill [facility] Division of Psychiatry [address] [place] [address] Melany Ulloa M.D. Psychiatry [address] [facility] [address] [place], [place] [phone] Medication Refill Social History Tobacco Use Types [...] hyperactivity documented in this encounter Care Teams Travel Physical Therapist Relationship Specialty Start Date End Date Bulmaro Brunner M.D. [address] [place] [phone] PCP - General External Pediatrics 04/19/12 documented as of this encounter
--- OUTSIDE RECORDS SUMMARY | 2024-09-26 05:09 | XMS_ITS | Encounter Summary ---
Author Organization [facility] Address [address] [place] [address] Care Team Providers Care Train Director Name Role Phone Bulmaro Brunner M.D. Primary Care Provider Reason for Visit * Reason Comments Medication Refill Encounter Details Date Type Department Care Team (Late st Contact Info) Description 05/05/2018 Refill [facility] Division of Psychiatry [address] [place] [address] Melany Ulloa M.D. Psychiatry [address] [facility] [address] [place], [place] [phone] Medication Refill Social History Tobacco Use Types [...] hyperactivity documented in this encounter Care Teams Train Director Relationship Specialty Start Date End Date Bulmaro Brunner M.D. NIKII: [phone] [facility] [place] [phone] PCP - General External Pediatrics 04/19/12 documented as of this encounter
--- OUTSIDE RECORDS SUMMARY | 2024-09-26 05:09 | XMS_ITS | Encounter Summary ---
Author Organization [facility] Address [address] [place] [address] Care Team Providers Care Manager Financial Planning Name Role Phone Bulmaro Brunner M.D. Primary Care Provider Encounter Details Date Type Department Care Team (Late st Contact Info) Description 07/07/2017 Clinical Note [facility] Division of Dentistry [address] [place] [phone] ProviderSanjuana Social History Tobacco Use Types [...] this encounter Progress Notes * ProviderSanjuana - 07/07/2017 12:00 AM EDT I was present in the clinic for the visit. I reviewed clinical and radiographic findings. I agree with the resident note and was immediately available for resident supervision. ~~Note authored by: Destiny Ruff ([email or web address]) documented in this encounter Plan of Treatment Not on file documented as of this encounter Visit Diagnoses Not on filedocumented in this encounter Care Teams Manager Financial Planning Relationship Specialty Start Date End Date Bulmaro Brunner M.D. [address] [place] [address] PCP - General External Pediatrics 04/19/12 documented as of this encounter
--- OUTSIDE RECORDS SUMMARY | 2024-09-26 05:09 | XMS_ITS | Encounter Summary ---
Author Organization [facility] Address [address] [place] [address] Care Team Providers Care Software Performance Engineer Name Role Phone Bulmaro Brunner M.D. Primary Care Provider Reason for Visit * Reason Comments Medication Refill Encounter Details Date Type Department Care Team (Late st Contact Info) Description 07/10/2019 Refill [facility] Division of Psychiatry [address] [place] [address] Melany Ulloa M.D. Psychiatry [address] [facility] [address] [place], [place] [phone] Medication Refill Social History Tobacco Use Types [...] hyperactivity documented in this encounter Care Teams Software Performance Engineer Relationship Specialty Start Date End Date Bulmaro Brunner M.D. [address] [place] [phone] PCP - General External Pediatrics 04/19/12 documented as of this encounter
--- OUTSIDE RECORDS SUMMARY | 2024-09-26 05:09 | XMS_ITS | Encounter Summary ---
Author Organization [facility] Address [address] [place] [address] Care Team Providers Care Digital Circuit Designer Name Role Phone Bulmaro Brunner M.D. Primary Care Provider Encounter Details Date Type Department Care Team (Late st Contact Info) Description 01/13/2018 Clinical Note [facility] Division of Dentistry [address] [place] [phone] Provider, Historical Social History Tobacco Use [...] this encounter Progress Notes * ProviderSanjuana - 01/13/2018 12:00 AM EDT Referral sent to [facility] authored by: Ricky Bocanegra ([email or web address]) documented in this encounter Plan of Treatment Not on file documented as of this encounter Visit Diagnoses Not on filedocumented in this encounter Care Teams Digital Circuit Designer Relationship Specialty Start Date End Date Bulmaro Brunner M.D. NPMichelet: [phone] [address] [place] [phone] PCP - General External Pediatrics 04/19/12 documented as of this encounter
--- OUTSIDE RECORDS SUMMARY | 2024-09-26 05:09 | XMS_ITS | Encounter Summary ---
Author Organization [facility] Address [address] [place] [address] Care Team Providers Care Juvenile Justice Specialist Name Role Phone Bulmaro Brunner M.D. Primary Care Provider Reason for Visit * Reason Comments Medication Refill Encounter Details Date Type Department Care Team (Late st Contact Info) Description 01/09/2015 Telephone [facility] Division of Psychiatry [address] [place] [phone] Melany Ulloa M.D. Psychiatry [address] [place] [address] [address] [place] [address] Medication Refill Social History Tobacco [...] encounter Miscellaneous Notes * Telephone Encounter - Renate Baugh - 01/09/2015 10:14 AM EDT Last Appt: 01-02-15 Next Appt: none scheduled documented in this encounter Plan of Treatment Not on file documented as of this encounter Visit Diagnoses Not on filedocumented in this encounter Care Teams Juvenile Justice Specialist Relationship Specialty Start Date End Date Bulmaro Brunner M.D. [address] [place] [phone] PCP - General External Pediatrics 04/19/12 documented as of this encounter
--- OUTSIDE RECORDS SUMMARY | 2024-09-26 05:09 | XMS_ITS | Encounter Summary ---
Author Organization [facility] Address [address] [place] [address] Care Team Providers Care Class B Truck Driver Name Role Phone Bulmaro Brunner M.D. Primary Care Provider Reason for Visit * Reason Comments Medication Refill Encounter Details Date Type Department Care Team ([facility] st Contact Info) Description 06/11/2015 Refill [facility] Division of Psychiatry [address] [place] [address] Melany Ulloa M.D. Psychiatry [address] [place] [address] [address] [place], [place] [phone] Medication Refill Social History Tobacco Use Types [...] on filedocumented in this encounter Care Teams Class B Truck Driver Relationship Specialty Start Date End Date Bulmaro Brunner M.D. [address] [place] [phone] PCP - General External Pediatrics 04/19/12 documented as of this encounter
--- OUTSIDE RECORDS SUMMARY | 2024-09-26 05:09 | XMS_ITS | Encounter Summary ---
Author Organization [facility] Address [address] [place] [address] Care Team Providers Care Technical Account Representative Name Role Phone Bulmaro Brunner M.D. Primary Care Provider Encounter Details Date Type Department Care Team (Late st Contact Info) Description 07/07/2017 Clinical Note [facility] Division of Dentistry [address] [place] [phone] Provider, Historical Social History Tobacco Use [...] Provider, Historical - 07/07/2017 12:00 AM EDT Referral sent to [facility] authored by: Ricky Bocanegra ([email or web address]) documented in this encounter Plan of Treatment Not on file documented as of this encounter Visit Diagnoses Not on filedocumented in this encounter Care Teams Technical Account Representative Relationship Specialty Start Date End Date Bulmaro Brunner M.D. [facility] [place] [address] PCP - General External Pediatrics 04/19/12 documented as of this encounter
--- OUTSIDE RECORDS SUMMARY | 2024-09-26 05:09 | XMS_ITS | Encounter Summary ---
Author Organization [facility] Address [address] [place] [address] Care Team Providers Care Helicopter Specialist Name Role Phone Bulmaro Brunner M.D. Primary Care Provider Reason for Visit * Reason Onset Date Comments Medication Refill 06/07/2019 Encounter Details Date Type Department Care Team (Late st Contact Info) Description 06/07/2019 Refill [facility] Division of Neurology [address] [place] [address] Danyel Esteves M.D. Neurology [address] [place] [phone] Medication Refill Social History Tobacco Use [...] as of this encounter Visit Diagnoses Diagnosis Seizure disorder Unspecified epilepsy without mention of intractable epilepsy Intellectual disability Unspecified intellectual disabilities Major depressive disorder, single episode, severe with psychotic features Major depressive disorder, single episode, severe, specified as with psychotic behavior Generalized lymphadenopathy Enlargement of lymph nodes Eosinophilia Intermittent explosive disorder Bipolar I disorder, most recent episode (or current) manic Bipolar I disorder, most recent episode (or current) manic, unspecified Attention deficit hyperactivity disorder, combined type Attention deficit disorder with hyperactivity Regular astigmatism of both eyes Regular astigmatism Suicidal ideation Language impairment Other speech disturbance Trichotillomania Other disorder of impulse control Mood disorder Unspecified episodic mood disorder Myopia, unspecified laterality Regular astigmatism, unspecified laterality Generalized epilepsy Unspecified epilepsy without mention of intractable epilepsy Other specified anxiety disorders Adjustment disorder with other symptom Impaired cognition Unspecified persistent mental disorders due to conditions classified elsewhere documented in this encounter Care Teams Helicopter Specialist Relationship Specialty Start Date End Date Bulmaro Brunner M.D. [address] [place] [phone] PCP - General External Pediatrics 04/19/12 documented as of this encounter
--- OUTSIDE RECORDS SUMMARY | 2024-09-26 05:09 | XMS_ITS | Encounter Summary ---
Author Organization [facility] Address [address] [place] [address] Care Team Providers Care Director Of Nuclear Medicine Name Role Phone Bulmaro Brunner M.D. Primary Care Provider Reason for Visit * Reason Onset Date Comments Medication Refill 12/05/2019 Encounter Details Date Type Department Care Team (Late st Contact Info) Description 12/05/2019 Refill [facility] Division of Psychiatry [address] [place] [address] Melany Ulloa M.D. Psychiatry [address] [facility] [address] [place], [place] [phone] Medication Refill Social History Tobacco Use Types [...] * Telephone Encounter - Saúl Metzger - 12/05/2019 11:41 AM EDT REFILL REQUEST Received refill request for Adderall xr 30 mg LV: 08/13/19 NV: 12/06/19 Medication verified via ov note from 08/13/19. Order pended to for review. documented in this encounter Plan of Treatment [...] elsewhere documented in this encounter Care Teams Director Of Nuclear Medicine Relationship Specialty Start Date End Date Bulmaro Brunner M.D. CHAPARRO: [phone] [address] [place] [phone] PCP - General External Pediatrics 04/19/12 documented as of this encounter
--- OUTSIDE RECORDS SUMMARY | 2024-09-26 05:09 | XMS_ITS | Encounter Summary ---
Author Organization [facility] Address [address] [place] [address] Care Team Providers Care Concrete Swimming Pool Installer Name Role Phone Bulmaro Brunner M.D. Primary Care Provider Encounter Details Date Type Department Care Team (Late st Contact Info) Description 05/17/2023 Abstract [facility] Division of Dentistry [address] [place] [phone] Provider, Historical Social History Tobacco Use [...] Diagnosis Comments NV TOPICAL APPLICATION OF FLUORIDE - EXCLUDING VARNISH Routine 04/24/2013 12:00 AM EST documented in this encounter Visit Diagnoses Not on filedocumented in this encounter Care Teams Concrete Swimming Pool Installer Relationship Specialty Start Date End Date Bulmaro Brunner M.D. [address] [place] [phone] PCP - General External Pediatrics 04/19/12 documented as of this encounter
--- OUTSIDE RECORDS SUMMARY | 2024-09-26 05:09 | XMS_ITS | Encounter Summary ---
Author Organization [facility] Address [address] [place] [address] Care Team Providers Care Netezza Architect Name Role Phone Bulmaro Brunner M.D. Primary Care Provider Reason for Visit * Reason Comments Medication Refill Encounter Details Date Type Department Care Team (Late st Contact Info) Description 07/05/2021 Refill [facility] Division of Psychiatry [address] [place] [phone] Melany Ulloa M.D. Psychiatry [address] [place] [address] [address] [place], [place] [phone] Medication Refill Social History Tobacco Use Types [...] encounter Miscellaneous Notes * Telephone Encounter - Casie Martinez, Falsework Builder - 07/05/2021 2:02 PM EDT REFILL DENIAL Refill received for Risperdal 0.5mg from Pharmacy via escribe. Refill denied r/t Seeing provider outside of [facility] Psychiatry Switched to adult care, documented in this encounter Plan of Treatment [...] elsewhere documented in this encounter Care Teams Netezza Architect Relationship Specialty Start Date End Date Bulmaro Brunner M.D. CHAPARRO: [id number] [address] [place] [phone] PCP - General External Pediatrics 04/19/12 documented as of this encounter
--- OUTSIDE RECORDS SUMMARY | 2024-09-26 05:09 | XMS_ITS | Encounter Summary ---
Author Organization [facility] Address [address] [place] [address] Care Team Providers Care Gamma Facilities Operator Name Role Phone Bulmaro Brunner M.D. Primary Care Provider Encounter Details Date Type Department Care Team (Late st Contact Info) Description 05/17/2023 Abstract [facility] Division of Dentistry [address] [place] [phone] Provider, Historical Social History Tobacco Use [...] Procedure Name Priority Date/Time Associated Diagnosis Comments [place] PROPHYLAXIS - ADULT Routine 8 12:00 AM EDT OH PERIODIC ORAL EVALUATION - ESTABLISHED PATIENT Routine 07/07/2017 12:00 AM EDT 14 O OH SEALANT - PER TOOTH Routine 03/22/2017 12:00 AM EST 19 O OH SEALANT - PER TOOTH Routine 03/22/2017 12:00 AM EST OH INHALATION OF NITROUS OXIDE/ANALGESIA, ANXIOLYSIS Routine 03/16/2017 12:00 AM EST 7 F OH RESIN-BASED COMPOSITE - ONE SURFACE, ANTERIOR Routine 03/16/2017 12:00 AM EST 11 OH INTRAORAL - PERIAPICAL EACH ADDITIONAL RADIOGRAPHIC IMAGE Routine 01/06/2017 12:00 AM EDT OH BITEWINGS - TWO RADIOGRAPHIC IMAGES Routine 07/01/2014 12:00 AM EDT 30 [place] OH SEALANT - PER TOOTH Routine 06/01/2013 12:00 AM EST 3 LO OH SEALANT - PER TOOTH Routine 06/01/2013 12:00 AM EST 3 O OH SEALANT - PER TOOTH Routine 12/03/2011 12:00 AM EDT OH PROPHYLAXIS - CHILD Routine 2 12:00 AM EDT OH PERIODIC ORAL EVALUATION - ESTABLISHED PATIENT Routine 10/01/2011 12:00 AM EDT OH BITEWINGS - TWO RADIOGRAPHIC IMAGES Routine 07/30/2011 12:00 AM EDT OH LIMITED ORAL EVALUATION - PROBLEM FOCUSED Routine 07/30/2011 12:00 AM EDT documented in this encounter Visit Diagnoses Not on filedocumented in this encounter Care Teams Gamma Facilities Operator Relationship Specialty Start Date End Date Bulmaro Brunner M.D. [address] [place] [address] PCP - General External Pediatrics 04/19/12 documented as of this encounter
--- OUTSIDE RECORDS SUMMARY | 2024-09-26 05:09 | XMS_ITS | Encounter Summary ---
Author Organization [facility] Address [address] [place] [address] Care Team Providers Care Pst Manager Name Role Phone Bulmaro Brunner M.D. Primary Care Provider Encounter Details Date Type Department Care Team (Late st Contact Info) Description 01/12/2018 Clinical Note [facility] Division of Dentistry [address] [place] [phone] Provider, Historical Social History Tobacco Use [...] encounter Progress Notes * Provider, Sanjuana - 01/12/2018 12:00 AM EDT I was present in the clinic for the visit. I reviewed clinical and radiographic findings. I agree with the resident note and was immediately available for resident supervision. ~Note authored by: Kristine Garcia ([email or web address]) documented in this encounter Plan of Treatment Not on file documented as of this encounter Visit Diagnoses Not on filedocumented in this encounter Care Teams Pst Manager Relationship Specialty Start Date End Date Bulmaro Brunner M.D. [address] [place] [phone] PCP - General External Pediatrics 04/19/12 documented as of this encounter
--- OUTSIDE RECORDS SUMMARY | 2024-09-26 05:09 | XMS_ITS | Encounter Summary ---
Author Organization [facility] Address [address] [place] [address] Care Team Providers Care Bi Data Architect Name Role Phone Bulmaro Brunner M.D. Primary Care Provider Reason for Visit * Reason Onset Date Comments Medication Refill 05/14/2019 Encounter Details Date Type Department Care Team (Late st Contact Info) Description 05/14/2019 Refill [facility] Division of Neurology [address] [place] [address] Danyel Esteves M.D. Neurology [address] [place] [phone] Medication Refill Social History Tobacco Use [...] encounter Miscellaneous Notes * Telephone Encounter - Anthony Stewart Superintendent Drivers - 05/14/2019 2:55 PM EST Please refuse refill request. The patient still has refills on file at the pharmacy. I called taran to verify. documented in this encounter Plan of Treatment [...] Regular astigmatism of both eyes Regular astigmatism Mood disorder Unspecified episodic mood disorder documented in this encounter Care Teams Bi Data Architect Relationship Specialty Start Date End Date Bulmaro Brunner M.D. CHAPARRO: [phone] [facility] [place] [phone] PCP - General External Pediatrics 04/19/12 documented as of this encounter
--- OUTSIDE RECORDS SUMMARY | 2024-09-26 05:09 | XMS_ITS | Encounter Summary ---
Author Organization [facility] Address [address] [place] [address] Care Team Providers Care Rouge Mixer Name Role Phone Bulmaro Brunner M.D. Primary Care Provider Encounter Details Date Type Department Care Team (Late st Contact Info) Description 04/24/2013 Clinical Note [facility] Division of Dentistry [address] [place] [phone] Provider, Historical Social History Tobacco Use [...] Provider, Historical - 04/24/2013 12:00 AM EST Dentist/Clarification Operator/Hygienist verified correct patient. ~~:__00 ~~Pain?: Yes____ No __x__~Pain Score for visit:__0 ~Pain Scale used: (choose one: Faces___, Numeric Rating Scale_x__, FLACC___.)~~Note authored by: Mabel Cooney ([email or web address]) documented in this encounter Plan of Treatment Not on file documented as of this encounter Visit Diagnoses Not on filedocumented in this encounter Care Teams Rouge Mixer Relationship Specialty Start Date End Date Bulmaro Brunner M.D. [address] [place] [phone] PCP - General External Pediatrics 04/19/12 documented as of this encounter
--- OUTSIDE RECORDS SUMMARY | 2024-09-26 05:09 | XMS_ITS | Encounter Summary ---
Author Organization [facility] Address [address] [place] [address] Care Team Providers Care Air Conditioning Coil Assembler Name Role Phone Bulmaro Brunner M.D. Primary Care Provider Encounter Details Date Type Department Care Team (Late st Contact Info) Description 05/17/2023 [facility] Division of Dentistry [address] [place] [phone] Provider, Historical Social History Tobacco Use [...] Procedure Name Priority Date/Time Associated Diagnosis Comments MS BITEWINGS - TWO RADIOGRAPHIC IMAGES Routine 01/12/2018 12:00 AM EDT 3 MO MS RESIN-BASED COMPOSITE - TWO SURFACES, POSTERIOR Routine 03/22/2017 12:00 AM EST 31 O MS SEALANT - PER TOOTH Routine 03/22/2017 12:00 AM EST documented in this encounter Visit Diagnoses Not on filedocumented in this encounter Care Teams Air Conditioning Coil Assembler Relationship Specialty Start Date End Date Bulmaro Brunner M.D. CHAPARRO: [id number] [address] [place] [phone] PCP - General External Pediatrics 04/19/12 documented as of this encounter
--- OUTSIDE RECORDS SUMMARY | 2024-09-26 05:09 | XMS_ITS | Encounter Summary ---
Author Organization [facility] Address [address] [place] [address] Care Team Providers Care Bricklayer Name Role Phone Bulmaro Brunner M.D. Primary Care Provider Reason for Visit * Reason Comments Medication Refill VITAMIN D3 2000UNIT CAPSULES Encounter Details Date Type Department Care Team (Late st Contact Info) Description 10/25/2017 Refill [facility] Division of Neurology [address] [place] [address] Chava Esteves M.D. Neurology [address] [place] [phone] Medication Refill (VITAMIN D3 2000UNIT CAPSULES) Social History Tobacco Use Types Packs/Day Years [...] encounter Miscellaneous Notes * Telephone Encounter - Abby Phillips Medical Asst - 10/25/2017 8:58 AM EDT Medication refill request for: VITAMIN D3 2000UNIT CAPSULES Medication dose, strength, and quantity verified? yes Last recorded patient weight: Wt Readings from Last 1 Encounters: 09/08/17 : 51.5 kg (5 %, Z= -1.66)* * Growth percentiles are based on CDC 2-20 Years data. Last Visit: 09/08/2017; [facility]; CHAVA ESTEVES; [facility] Advised to follow up in: 6 months Follow up appointment: No appointment found Action: Refill pended to Chava esteves MD for review Pharmacy: [facility] [address] [place] [address] [address] [place] [address] [address] [facility] [phone] documented in this encounter Plan of Treatment Not on file documented as of this encounter Visit Diagnoses Diagnosis Generalized lymphadenopathy Enlargement of lymph nodes Eosinophilia Major depressive disorder, single episode, severe with psychotic features Major depressive disorder, single episode, severe, specified as with psychotic behavior Suicidal ideation Seizure disorder Unspecified epilepsy without mention of intractable epilepsy Intermittent explosive disorder Language impairment Other speech disturbance Bipolar I disorder, most recent episode (or current) manic Bipolar I disorder, most recent episode (or current) manic, unspecified Intellectual disability Unspecified intellectual disabilities Trichotillomania Other disorder of impulse control Attention deficit hyperactivity disorder, combined type Attention deficit disorder with hyperactivity Mood disorder Unspecified episodic mood disorder Myopia, unspecified laterality Regular astigmatism, unspecified laterality Generalized epilepsy Unspecified epilepsy without mention of intractable epilepsy Other specified anxiety disorders Adjustment disorder with other symptom Impaired cognition Unspecified persistent mental disorders due to conditions classified elsewhere documented in this encounter Care Teams Bricklayer Relationship Specialty Start Date End Date Bulmaro Brunner M.D. [address] [place] [phone] PCP - General External Pediatrics 04/19/12 documented as of this encounter
--- OUTSIDE RECORDS SUMMARY | 2024-09-26 05:09 | XMS_ITS | Encounter Summary ---
Author Organization [facility] Address [address] [place] [address] Care Team Providers Care Chief School Finance Officer Name Role Phone Bulmaro Brunner M.D. Primary Care Provider Encounter Details Date Type Department Care Team (Late st Contact Info) Description 05/17/2023 Abstract [facility] Division of Dentistry [address] [place] [phone] Provider, Historical Social History Tobacco Use [...] Procedure Name Priority Date/Time Associated Diagnosis Comments LA INHALATION OF NITROUS OXIDE/ANALGESIA, ANXIOLYSIS Routine 03/22/2017 12:00 AM EST 30 O LA SEALANT - PER TOOTH Routine 03/22/2017 12:00 AM EST 18 O LA SEALANT - PER TOOTH Routine 03/22/2017 12:00 AM EST LA TOPICAL APPLICATION OF FLUORIDE VARNISH Routine 01/06/2017 12:00 AM EDT LA PROPHYLAXIS - ADULT Routine 7 12:00 AM EDT LA TOPICAL APPLICATION OF FLUORIDE - EXCLUDING VARNISH Routine 07/01/2014 12:00 AM EDT LA PROPHYLAXIS - CHILD Routine 5 12:00 AM EDT 14 LO LA SEALANT - PER TOOTH Routine 06/01/2013 12:00 AM EST LA TOPICAL APPLICATION OF FLUORIDE VARNISH Routine 12/03/2011 12:00 AM EDT TOPICAL FLUOR W/O PROPHY CHI Routine 10/01/2011 12:00 AM EDT documented in this encounter Visit Diagnoses Not on filedocumented in this encounter Care Teams Chief School Finance Officer Relationship Specialty Start Date End Date Bulmaro Brunner M.D. [address] [place] [phone] PCP - General External Pediatrics 04/19/12 documented as of this encounter
--- OUTSIDE RECORDS SUMMARY | 2024-09-26 05:09 | XMS_ITS | Encounter Summary ---
Author Organization [facility] Address [address] [place] [address] Care Team Providers Care Pharmacy Affairs Assistant Name Role Phone Bulmaro Brunner M.D. Primary Care Provider Reason for Visit * Reason Comments Medication Refill Encounter Details Date Type Department Care Team ([facility] Contact Info) Description 02/13/2015 Refill [facility] Division of Psychiatry [address] [place] [phone] Melany Ulloa M.D. Psychiatry [address] [place] [address] [address] [place], [place] [phone] Medication Refill Social History Tobacco Use Types [...] on filedocumented in this encounter Care Teams Pharmacy Affairs Assistant Relationship Specialty Start Date End Date Bulmaro Brunner M.D. [address] [place] [phone] PCP - General External Pediatrics 04/19/12 documented as of this encounter
--- OUTSIDE RECORDS SUMMARY | 2024-09-26 05:09 | XMS_ITS | Encounter Summary ---
Author Organization [facility] Address [address] [place] [address] Care Team Providers Care President And Cmo Name Role Phone Bulmaro Brunner M.D. Primary Care Provider Reason for Visit * Reason Comments Medication Refill Encounter Details Date Type Department Care Team (Late st Contact Info) Description 08/23/[address] [facility] Division of Neurology [address] [place] [address] Danyel Esteves M.D. Neurology [address] [place] [address] [address] [place] [address] Medication Refill Social History Tobacco [...] encounter Miscellaneous Notes * Telephone Encounter - Melany Ulloa M.D. - 08/27/2019 6:46 PM EDT Will refill as requested documented in this encounter Plan of Treatment Not on file documented as of this encounter Visit Diagnoses Diagnosis Bipolar I disorder, most recent episode (or current) manic Bipolar I disorder, most recent episode (or current) manic, unspecified Attention deficit hyperactivity disorder, combined type Attention deficit disorder with hyperactivity Seizure disorder Unspecified epilepsy without mention of intractable epilepsy Intellectual disability Unspecified intellectual disabilities Major depressive disorder, single episode, severe with psychotic features Major depressive disorder, single episode, severe, specified as with psychotic behavior Generalized lymphadenopathy Enlargement of lymph nodes Eosinophilia Intermittent explosive disorder Regular astigmatism of both eyes Regular astigmatism [...] elsewhere documented in this encounter Care Teams President And Cmo Relationship Specialty Start Date End Date Bulmaro Brunner M.D. [address] [place] [phone] PCP - General External Pediatrics 04/19/12 documented as of this encounter
--- OUTSIDE RECORDS SUMMARY | 2024-09-26 05:09 | XMS_ITS | Encounter Summary ---
Author Organization [facility] Address [address] [place] [address] Care Team Providers Care Buckler And Lacer Name Role Phone Bulmaro Brunner M.D. Primary Care Provider Reason for Visit * Reason Comments Medication Refill Encounter Details Date Type Department Care Team (Late st Contact Info) Description 12/09/2019 Refill [facility] Division of Psychiatry [address] [place] [address] Melany Ulloa M.D. Psychiatry [address] [facility] [address] [place], [place] [phone] Medication Refill Social History Tobacco Use Types [...] * Telephone Encounter - Saúl Metzger - 12/10/2019 11:37 AM EDT REFILL DENIAL Refill received for Zyprexa 20 mg & wellbutrin 100 mg from pharamcy via interface. Refill denied r/t Othermeds were sent iun 12/06/19 with a 30 day supply and 2 refulls. documented in this encounter Plan of Treatment [...] elsewhere documented in this encounter Care Teams Buckler And Lacer Relationship Specialty Start Date End Date Bulmaro Brunner M.D. CHAPARRO: [id number] [address] [place] [phone] PCP - General External Pediatrics 04/19/12 documented as of this encounter
--- OUTSIDE RECORDS SUMMARY | 2024-09-26 05:09 | XMS_ITS | Encounter Summary ---
Author Organization [facility] Address [address] [place] [address] Care Team Providers Care Main Line Assembler Name Role Phone Bulmaro Brunner M.D. Primary Care Provider Reason for Visit * Reason Comments Medication Refill Encounter Details Date Type Department Care Team (Late st Contact Info) Description 04/23/2018 Refill [facility] Division of Psychiatry [address] [place] [address] Melany Ulloa M.D. Psychiatry [address] [facility] [address] [place], [place] [phone] Medication Refill Social History Tobacco Use Types [...] disorder documented in this encounter Care Teams Main Line Assembler Relationship Specialty Start Date End Date Bulmaro Brunner M.D. [address] [place] [phone] PCP - General External Pediatrics 04/19/12 documented as of this encounter
--- OUTSIDE RECORDS SUMMARY | 2024-09-26 05:09 | XMS_ITS | Encounter Summary ---
Author Organization [facility] Address [address] [place] [address] Care Team Providers Care Post Commander Name Role Phone Bulmaro Brunner M.D. Primary Care Provider Encounter Details Date Type Department Care Team (Late st Contact Info) Description 07/07/[address] [facility] Division of Dentistry [address] [place] [phone] Provider, Historical Social History Tobacco Use [...] Provider, Historical - 07/07/2017 12:00 AM EDT Dentist/Proctologist/Hygienist verified correct patient. ~~: 00 ~~Pain?: Yes____ No ___x_ ~Pain Score for visit: 0__ ~Pain Scale used: (choose one: Faces___, Numeric Rating Scale___x, FLACC___.) ~Note authored by: Courtney Peters ([email or web address]) documented in this encounter Plan of Treatment Not on file documented as of this encounter Visit Diagnoses Not on filedocumented in this encounter Care Teams Post Commander Relationship Specialty Start Date End Date Bulmaro Brunner M.D. [address] [place] [phone] PCP - General External Pediatrics 04/19/12 documented as of this encounter
--- OUTSIDE RECORDS SUMMARY | 2024-09-26 05:09 | XMS_ITS | Encounter Summary ---
Author Organization [facility] Address [address] [place] [address] Care Team Providers Care Hourly Team Members Name Role Phone Bulmaro Brunner M.D. Primary Care Provider Reason for Visit * Reason Comments Medication Refill Encounter Details Date Type Department Care Team (Late st Contact Info) Description 03/28/2019 Refill [facility] Division of Psychiatry [address] [place] [address] Melany Ulloa M.D. Psychiatry [address] [facility] [address] [place], [place] [phone] Medication Refill Social History Tobacco Use Types [...] on filedocumented in this encounter Care Teams Hourly Team Members Relationship Specialty Start Date End Date Bulmaro Brunner M.D. [address] [place] [phone] PCP - General External Pediatrics 04/19/12 documented as of this encounter
--- OUTSIDE RECORDS SUMMARY | 2024-09-26 05:09 | XMS_ITS | Encounter Summary ---
Author Organization [facility] Address [address] [place] [address] Care Team Providers Care Midwife Name Role Phone Bulmaro Brunner M.D. Primary Care Provider Encounter Details Date Type Department Care Team (Late st Contact Info) Description 04/24/2013 Clinical Note [facility] Division of Dentistry [address] [place] [phone] Provider, Historical Social History Tobacco Use [...] Provider, Historical - 04/24/2013 12:00 AM EST Reviewed the findings. Agreement with treatment plan.~Note authored by: Garret Hess ([email or web address]) documented in this encounter Plan of Treatment Not on file documented as of this encounter Visit Diagnoses Not on filedocumented in this encounter Care Teams Midwife Relationship Specialty Start Date End Date Bulmaro Brunner M.D. [address] [place] [phone] PCP - General External Pediatrics 04/19/12 documented as of this encounter
--- NOTE | 2024-09-26 08:27 | PC.NURSE ---
I checked on Avelino as he is still in the waiting room. Pt states that he is unable to get a ride home until about 1800 by his uncle due to his work schedule. I have consulted case management to see if we are able to help him find a ride. I ordered him a breakfast tray.
--- NOTE | 2024-09-26 08:36 | PC.NURSE ---
I called [facility] and spoke with Gerson inquiring about the location the pt was picked up. Gerson states he was picked up at the intersection of [place] and [facility]. EMS was called by [employer].
--- NOTE | 2024-09-26 08:46 | PC.NURSE ---
I spoke with Officer Navneet at [facility] inquiring what toño company was used on [employer] vehicle. He states [employer] toño by Curtis Ba, . Officer Navneet states that if Avelino needs a ride to his vehicle they can transport.
--- NOTE | 2024-09-26 09:05 | PC.NURSE ---
I spoke with Becca in case management, she is reaching out to the [employer].
== END 2024-09-26 04:40 | disposition left against medical advice (07) ==
PROVIDERS: Emergency Provider Emergency Medicine
DX: R41.82 Altered mental status, unspecified (principal)
CPT/HCPCS: 99282